=== PATIENT | male | born 1955 | race Caucasian/White ===

== ENCOUNTER → 2019-01-24 11:16 | Outpatient (CLI) | payer OTHER, MEDICAID, SELFPAY | PROVIDERS: PCP Student in an Organized Health Care Education/Training Program; Visit Provider Acupuncturist | DX: Z79.891 Long term (current) use of opiate analgesic (principal) | CPT/HCPCS: 93005; 93010 ==

== ENCOUNTER → 2019-02-08 13:34 | Outpatient (CLI) | payer OTHER, MEDICAID, SELFPAY ==
--- NOTE | 2019-02-08 | DI.MRI.S_ITS ---
PROCEDURE: MR LUMBAR SPINE WO CON INDICATIONS: LUMBAGO WITH SCIATICA TECHNIQUE: Noncontrast sagittal T1 spin echo and T2 fast echo, sagittal STIR, axial T1 and T2 fast spin echo through the lumbar spine. In cases with scoliosis, additional coronal T2 fast spin echo may be performed. COMPARISON: [facility], MR, MR ABDOMEN WITH/WITHOUT CONTRAST, 12/15/2017, 10:49. [facility], MR, L-SPINE WITHOUT CONTRAST, 05/07/2008, 17:36. FINDINGS: Image quality: Excellent. Alignment and Curvature: No plain films are available for comparison, for numbering purposes. Thus, for the purposes of this examination, 5 lumbar type vertebral bodies will be presumed, as denoted on the montage panel. This should be confirmed and correlated with plain films, prior to any lumbar spinal intervention. There is mild, grade 1 retrolisthesis of L2 on L3, L3 on L4, and L5 on S1. Bone Marrow: Marrow is of normal overall signal. No acute vertebral body compression fractures. Small Schmorl's nodes invaginate the inferior L3 and inferior L4 end plates. There is moderate reactive signal within the end plates adjacent to the L3-L4, L4-L5, and L5-S1 intervertebral discs, increased compared to the prior examination. There is new mild reactive signal within the endplates adjacent to the L2-L3 intervertebral disc. Spinal Cord: Conus medullaris terminates at the L1-L2 disc space level. Visualized cord demonstrates normal signal and size. Paraspinous Soft Tissues: No paravertebral masses. Biliary ductal dilatation is present, as before. L1-L2: Normal appearance. L2-L3: Severe disc height loss and desiccation. Mild diffuse disc bulge/osteophyte. Mild facet and ligament flavum hypertrophy. Mild canal stenosis. Moderate subarticular foraminal stenosis, increased from the prior examination. L3-L4: Severe disc height loss and desiccation. Mild diffuse disc bulge. Mild facet and ligamentum flavum hypertrophy. Mild canal stenosis. Increased, moderate subarticular foraminal stenosis. L4-L5: Moderate discoid loss and desiccation. Mild diffuse disc bulge/osteophyte. Mild facet and ligament flavum hypertrophy. Mild canal stenosis. Moderate subarticular foraminal stenosis, increased from the prior examination. L5-S1: Severe disc height loss and desiccation. Mild diffuse disc bulge/osteophyte with superimposed left far lateral protrusion/osteophyte. Mild bilateral facet hypertrophy. Mild canal stenosis. Mild right and severe left foraminal stenosis, increased from the prior examination. Flattening deformity of the left L5 nerve root within the neural foramen. IMPRESSION: 1. 5 lumbar type vertebral bodies were presumed for the current report. Plain films of the lumbar spine are recommended for confirmation, prior to any lumbar spinal intervention. 2. Multilevel degenerative disc and facet disease, as well as ligamentum flavum hypertrophy and epidural lipomatosis. 3. Mild multilevel canal stenoses. 4. Multilevel foraminal stenoses, worst at L5-S1 on the left where there is associated L5 nerve root flattening. Recommend correlation with clinical symptoms to ascertain relevance of this finding. 5. Biliary ductal dilatation, which could be further assessed with MRCP, if clinically indicated. Dictated by: Bentley Husain M.D. on 02/08/2019 at 14:41 Approved by: Bentley Husain M.D. on 02/08/2019 at 14:48
== END ==
PROVIDERS: PCP Student in an Organized Health Care Education/Training Program; Visit Provider Acupuncturist
DX: M51.16 Intervertebral disc disorders with radiculopathy, lumbar region (principal); M51.17 Intervertebral disc disorders with radiculopathy, lumbosacral region; M48.061 Spinal stenosis, lumbar region without neurogenic claudication; M48.07 Spinal stenosis, lumbosacral region; E88.2 Lipomatosis, not elsewhere classified; K83.8 Other specified diseases of biliary tract
CPT/HCPCS: 72148

== ENCOUNTER 2019-07-09 21:17 | Emergency (ER) | payer OTHER, MEDICAID, SELFPAY ==
[2019-07-09 21:20] VITALS: BP 171/81; PULSE 91; RESP 18; TEMP 36.6; O2SAT 95
[2019-07-09 22:00] VITALS: BP 153/112; PULSE 65; RESP 18; O2SAT 100
[2019-07-09] MEDS: HYDROMORPHONE 1 MG INJ IV (22:08)
[2019-07-09] MEDS: ONDANSETRON 4 MG/2 ML INJ IV (22:10)
--- NOTE | 2019-07-09 22:20 | ED_ITS ---
HPI - Abdominal Pain General Chief Complaint: Abdominal Pain Stated Complaint: BLOATING DIARRHEA Time Seen by Provider: 07/09/19 21:28 Source: patient and family Mode of arrival: ambulatory Limitations: no limitations History of Present Illness HPI narrative: 64-year-old male smoker and former heavy drinker with hepatitis C and hepatocellular carcinoma presents with bloating and diarrhea for the past few days. He also has generalized abdominal pain and some swelling and reportedly has been out of his methadone. Patient denies any fever chills. He is not dizzy nor weak or lightheaded. He denies chest pain or shortness of breath. Family and friends at the bedside deny any mental status change. Patient denies recent antibiotic use, long-distance travel, bad food or exposure to ill persons MD complaint: abdominal pain Onset (ago): day(s) Pain Consistency: constant Location: diffuse Severity: moderate Quality: cramping Radiation: none Migration to: no migration Relieving factors: nothing Exacerbating factors: nothing Associated symptoms: nausea and diarrhea Related Data Home Medications Medication Instructions Recorded Confirmed methadone 10 mg PO QID 07/09/19 07/09/19 Allergies Allergy/AdvReac Type Severity Reaction Status Date / Time acetaminophen [From Tylenol] AdvReac Unknown Verified 07/09/19 21:28 Review of Systems Constitutional Denies chills, Denies fever(s), Denies lethargy and Denies weakness Eyes Denies change in vision, Denies eye discharge, Denies irritation and Denies loss of vision ENT Ears, Nose, Mouth, and Throat: Denies change in voice, Denies neck pain and Denies sore throat Cardiovascular Denies chest pain, Denies irregular heart rhythm, Denies lightheadedness, Denies palpitations, Denies dyspnea, Denies dyspnea on exertion and Denies orthopnea Respiratory Denies cough, Denies dyspnea, Denies dyspnea on exertion and Denies wheezing Gastrointestinal Gastrointestinal: Reports abdominal pain, Reports change in bowel habits, Reports diarrhea, Reports nausea and Denies vomiting Genitourinary Denies hematuria, Denies flank pain, Denies urinary incontinence and Denies urinary urgency Musculoskeletal Denies neck pain Integumentary/Breasts Denies pruritus, Denies erythema, Denies rash and Denies wounds Neurologic Denies confusion, Denies loss of vision and Denies weakness Psychiatric Denies anxiety, Denies confusion, Denies depression, Denies homicidal ideation and Denies suicidal ideation Endocrine Denies palpitations Hematologic/Lymphatic Denies easy bruising Allergic/Immunologic Denies wheezing PFSH Medical History Uncomplicated opioid dependence (Chronic) Hepatocellular carcinoma (Resolved Unknown) GERD (gastroesophageal reflux disease) (Chronic Unknown) Hypertension (Chronic Unknown) DDD (degenerative disc disease), lumbosacral (Chronic Unknown) Hepatitis C (Chronic Unknown) Cirrhosis (Chronic Unknown) Bipolar disorder (Chronic Unknown) Chronic pain syndrome (Chronic Unknown) Hx of head injury (Resolved 1984) Surgical History History of surgery of liver (Resolved ~2011) Hx of skin graft (Resolved 1995) Family History Mother Age: 85 Breast cancer genetic susceptibility Social History Smoking Status: Current every day smoker Family History Mother Age: 85 Breast cancer genetic susceptibility Social History Smoking Status: Current every day smoker Exam Narrative Exam Narrative: GENERAL: [64] year old patient appears older than stated age. Temporal wasting, obviously chronically ill and a bit disheveled though alert and oriented x3 with GCS 15 HEAD: Atraumatic. Normocephalic. EYES: Pupils equal round and reactive. Extraocular motions intact. No scleral icterus. No injection or drainage. ENT: Nose without bleeding, purulent drainage. Throat without erythema, tonsillar hypertrophy or exudate. Airway patent. NECK: Trachea midline. Non tender CARDIOVASCULAR: Regular rate and rhythm without murmurs, gallops, or rubs. RESPIRATORY: Clear to auscultation. Breath sounds equal bilaterally. No wheezes, rales, or rhonchi. GASTROINTESTINAL: Abdomen soft, generalized tenderness with ascites and fluid wave. No redness or warmth to suggest spontaneous bacterial peritonitis, nondistended. EXTREMITIES: No edema or joint tenderness. BACK: Nontender without deformity or crepitance. No flank tenderness. NEURO: AOx3. SKIN: No rash or erythema of visible areas Initial Vital Signs Initial Vital Signs: Vital Signs Temperature 97.9 F 07/09/19 21:20 Pulse Rate 91 H 07/09/19 21:20 Respiratory Rate 18 07/09/19 21:20 Blood Pressure 171/81 H 07/09/19 21:20 Pulse Oximetry 95 07/09/19 21:20 Course Orders Ordered: ED Orders 07/09/19 22:05 Complete Blood Count AUTO DIFF Stat Comprehensive Metabolic Panel Stat Lactate (Lactic Acid) Stat Lipase Stat Magnesium Stat Partial Thromboplastin Time Stat Procalcitonin Stat Prothrombin Time INR Stat Troponin I Stat 07/09/19 22:30 Ammonia (NH3) Stat Blood Culture Stat 07/09/19 23:09 CT chest abd pel w con Stat Discontinued Medications Hydromorphone HCl (Dilaudid) 1 mg IV NOW ONE Stop: 07/09/19 21:52 Last Admin: 07/09/19 22:08 Dose: 1 mg Hydromorphone HCl (Dilaudid) 1 mg IV NOW ONE Stop: 07/10/19 01:45 Last Admin: 07/10/19 01:53 Dose: 1 mg Ondansetron HCl (Zofran) 4 mg IV NOW ONE Stop: 07/09/19 21:52 Last Admin: 07/09/19 22:10 Dose: 4 mg Ondansetron HCl (Zofran Odt Prepack) 1 bottle MISC SEEINSTR ONE Stop: 07/10/19 01:46 Last Admin: 07/10/19 01:53 Dose: 1 bottle Oxycodone/Acetaminophen (Endocet 5/325 Prepack) 1 bottle MISC SEEINSTR ONE Stop: 07/10/19 01:45 Last Admin: 07/10/19 01:53 Dose: 1 bottle Vital Signs - 8 hr 07/09/19 23:00 07/10/19 00:19 07/10/19 01:27 Temperature Pulse Rate 57 L 58 L 60 Respiratory Rate 15 16 17 Blood Pressure Blood Pressure [Left Arm] 151/67 H 150/84 H 137/75 Pulse Oximetry 100 100 100 07/10/19 02:04 07/10/19 02:42 Temperature 98.8 F Pulse Rate 59 L 170 H Respiratory Rate 16 Blood Pressure 144/93 H Blood Pressure [Left Arm] Pulse Oximetry 99 100 MDM - Abdominal Pain Lab Data Result diagrams: 07/09/19 22:05 07/09/19 22:05 Lab Results 07/09/19 07/09/19 07/09/19 Range/Units 22:05 22:05 22:05 WBC 5.8 (4.5-11.0) X10^3/uL RBC 4.32 L (4.5-5.9) X10^6/uL Hgb 13.8 (13.5-17.5) g/dL Hct 39.9 L (41-53) % MCV 92.3 (80-100) fL MCH 32.0 (26-34) PG MCHC 34.7 (30-36) % RDW 13.7 (11.6-14.8) % Plt Count 89 L (150-400) X10^3/uL Neut % (Auto) 81.3 H (50-75) % Lymph % (Auto) 5.5 L (25-40) % [place] % (Auto) 9.7 (3-14) % Eos % (Auto) 2.6 (2-4) % Baso % (Auto) 0.9 (0-2) % Neut # (Auto) 4700 (1496-3309) /uL Lymph # (Auto) 300 L (3955-4855) /uL [place] # (Auto) 600 (0-900) /uL Eos # (Auto) 200 (0-450) /uL Baso # (Auto) 100 (0-100) /uL RBC Morphology Normal morphology PT 13.4 H (10.1-12.7) SECONDS INR 1.2 (0.9-1.3) APTT 34 (26.4-36.2) SECONDS Sodium 135 L (137-145) mmol/L Potassium 3.8 (3.4-5.1) mmol/L Chloride 101 (98-107) mmol/L Carbon Dioxide 29 (22-32) mmol/L BUN 7 L (9-20) mg/dL Creatinine 0.60 L (0.66-1.25) mg/dL Estimated GFR > 60.0 (>60) mL/min BUN/Creatinine Ratio 11.7 (6-22) Glucose 123 H (80-110) mg/dL Lactate (0.7-2.1) mmol/L Calcium 8.5 (8.4-10.2) mg/dL Magnesium 1.9 (1.6-2.3) mg/dL Total Bilirubin 1.0 (0.2-1.3) mg/dL AST 45 (17-59) IU/L ALT 24 (21-72) IU/L Alkaline Phosphatase 114 (38-126) U/L Ammonia (9-30) umol/L Troponin I < 0.012 (0.01-0.034) ng/mL Total Protein 7.0 (6.3-8.2) g/dL Albumin 3.4 L (3.5-5.0) g/dL Globulin 3.6 (1.7-4.1) g/dL Albumin/Globulin Ratio 0.9 L (1.0-2.8) Lipase 69 (23-300) U/L Procalcitonin (<0.5) ng/mL 07/09/19 07/09/19 07/09/19 Range/Units 22:05 22:05 22:30 WBC (4.5-11.0) X10^3/uL RBC (4.5-5.9) X10^6/uL Hgb (13.5-17.5) g/dL Hct (41-53) % MCV (80-100) fL MCH (26-34) PG MCHC (30-36) % RDW (11.6-14.8) % Plt Count (150-400) X10^3/uL Neut % (Auto) (50-75) % Lymph % (Auto) (25-40) % [place] % (Auto) (3-14) % Eos % (Auto) (2-4) % Baso % (Auto) (0-2) % Neut # (Auto) (4227-2925) /uL Lymph # (Auto) (1903-5324) /uL [place] # (Auto) (0-900) /uL Eos # (Auto) (0-450) /uL Baso # (Auto) (0-100) /uL RBC Morphology PT (10.1-12.7) SECONDS INR (0.9-1.3) APTT (26.4-36.2) SECONDS Sodium (137-145) mmol/L Potassium (3.4-5.1) mmol/L Chloride (98-107) mmol/L Carbon Dioxide (22-32) mmol/L BUN (9-20) mg/dL Creatinine (0.66-1.25) mg/dL Estimated GFR (>60) mL/min BUN/Creatinine Ratio (6-22) Glucose (80-110) mg/dL Lactate 1.5 (0.7-2.1) mmol/L Calcium (8.4-10.2) mg/dL Magnesium (1.6-2.3) mg/dL Total Bilirubin (0.2-1.3) mg/dL AST (17-59) IU/L ALT (21-72) IU/L Alkaline Phosphatase (38-126) U/L Ammonia < 9.0 L (9-30) umol/L Troponin I (0.01-0.034) ng/mL Total Protein (6.3-8.2) g/dL Albumin (3.5-5.0) g/dL Globulin (1.7-4.1) g/dL Albumin/Globulin Ratio (1.0-2.8) Lipase (23-300) U/L Procalcitonin < 0.05 (<0.5) ng/mL Point of care testing: Urine Dip Bedside Urine Glucose Negative Bedside Urine Bilirubin - Negative Bedside Urine Ketone - Negative Urine Specific [place] 1.015 Bedside Urine Occult Blood - Negative Bedside Urine pH 5.5 Bedside Urine Protein - Negative Bedside Urine Urobilinogen - Negative Bedside Urine Nitrite - Negative Bedside Urine Leukocytes - Negative Esterase Imaging Data CT scan - chest: Radiologist's impression: Changes of cirrhosis and portal hypertension. Several indeterminate hepatic lesions. Indeterminate dilatation of common bile duct. Large amount of ascites. Discharge Plan Departure Patient Disposition: Home Clinical Impression: Degeneration of intervertebral disc at L5-S1 level Ascites Qualifiers: Ascites type: due to alcoholic cirrhosis Qualified Code(s): K70.31 - Alcoholic cirrhosis of liver with ascites Diarrhea Qualifiers: Diarrhea type: unspecified type Qualified Code(s): R19.7 - Diarrhea, unspe cified Discharge Date/Time: 07/10/19 02:47 Interventions: ED Discharge Assessment Last Done: 07/10/19 02:04 Instructions: DI for Abdominal Pain-Adult Activity Restrictions/Additional Instructions: *You have been diagnosed with [ascites you to alcoholic cirrhosis, diarrhea] *What to do: *Take medications as directed *Follow up with your primary care provider in 2-3 days, call for an appointment. Let them know you were seen in the Emergency Department and that we ask that you be seen in follow up. They will likely want to refer you to for a paracentesis to drain the fluid off of your abdomen *Return to ER if you should have any new, worsening or concerning symptoms Prescriptions: No Action methadone 10 mg tablet 10 mg PO QID RF: 0 Referrals: Ricky Lorenzo MD [Primary Care Provider] -
[2019-07-09 22:38] LABS: INR 1.2 (0.9-1.3); Prothrombin Time 13.4 SECONDS (10.1-12.7)
[2019-07-09 22:41] LABS: PTT Partial Thromboplastin Tim 34 SECONDS (26.4-36.2)
[2019-07-09 22:42] LABS: Lactate (Lactic Acid) 1.5 mmol/L (0.7-2.1)
[2019-07-09 22:45] LABS: Alanine Aminotransferase 24 IU/L (21-72); Albumin 3.4 g/dL (3.5-5.0); Albumin Globulin Ratio 0.9 (1.0-2.8); Alkaline Phosphatase 114 U/L (38-126); Aspartate Aminotransferase 45 IU/L (17-59); BUN Creatinine Ratio 11.7 (6-22); Blood Urea Nitrogen 7 mg/dL (9-20); Calcium 8.5 mg/dL (8.4-10.2); Carbon Dioxide 29 mmol/L (22-32); Chloride 101 mmol/L (98-107); Estimated Glomerular Filt Rate > 60.0 mL/min (>60); Globulin 3.6 g/dL (1.7-4.1); Glucose 123 mg/dL (80-110); HEMOLYSIS < 15 (0-50); Lipase 69 U/L (23-300); Magnesium 1.9 mg/dL (1.6-2.3); Potassium 3.8 mmol/L (3.4-5.1); Sodium 135 mmol/L (137-145)
[2019-07-09 22:48] LABS: Basophils Absolute Auto 100 /uL (0-100); Basophils Percent Auto 0.9 % (0-2); Eosinophils Absolute Auto 200 /uL (0-450); Eosinophils Percent Auto 2.6 % (2-4); Hematocrit 39.9 % (41-53); Hemoglobin 13.8 g/dL (13.5-17.5); Lymphocytes Absolute Auto 300 /uL (1100-4500); Lymphocytes Percent Auto 5.5 % (25-40); Mean Corpuscular HGB Conc 34.7 % (30-36); Mean Corpuscular Volume 92.3 fL (80-100); Monocytes Absolute Auto 600 /uL (0-900); Monocytes Percent Auto 9.7 % (3-14); Neutrophils Absolute Auto 4700 /uL (1500-7000); Neutrophils Percent Auto 81.3 % (50-75); Red Blood Cell Count 4.32 X10^6/uL (4.5-5.9); Red Cell Distribution Width 13.7 % (11.6-14.8); White Blood Cell Count 5.8 X10^3/uL (4.5-11.0)
[2019-07-09 22:50] LABS: Ammonia (NH3) < 9.0 umol/L (9-30)
[2019-07-09 22:55] LABS: Platelet Count 89 X10^3/uL (150-400)
[2019-07-09 22:56] LABS: Add Manual Diff / Slide Review SLIDE REVIEW; Troponin I < 0.012 ng/mL (0.01-0.034)
[2019-07-09 22:57] LABS: RBC Morphology Normal Morphology
[2019-07-09 22:59] LABS: Procalcitonin < 0.05 ng/mL (<0.5)
[2019-07-09 23:00] VITALS: BP 151/67; PULSE 57; RESP 15; O2SAT 100
--- NOTE | 2019-07-09 23:09 | DI.CT.S_ITS ---
PROCEDURE: CT CHEST ABD PEL W CON INDICATIONS: severe abdominal pain, SOB, N/V, liver CA TECHNIQUE: After the administration of intravenous contrast, 5 mm thick sections acquired from the lung apices to the symphysis. 2.5 mm thick coronal and sagittal reformats were acquired. Additional 7 mm thick coronal maximum intensity projection (MIP) reformats acquired through the lungs. Optional 10-minute delayed imaging may be performed from the kidneys to the bladder. For radiation dose reduction, the following was used: automated exposure control, adjustment of mA and/or kV according to patient size. COMPARISON: [facility], MR, MR ABDOMEN WITH/WITHOUT CONTRAST, 12/15/2017, 10:49. FINDINGS: Image quality: Excellent. CHEST: Lungs: No pulmonary contusions or lacerations. Few scattered blebs. Punctate calcified granuloma in the left upper lobe on image 88. No acute consolidation. No pneumothorax or hemothorax. Central and peripheral airways appear patent and normal in caliber. Mediastinum: No mediastinal hematomas. Heart size is normal. No pericardial effusion. Thoracic aorta and pulmonary arteries demonstrate normal size and enhancement. No mediastinal or hilar adenopathy. Esophagus is normal in caliber. No hiatal hernia. Chest wall: No rib fractures. No subcutaneous emphysema. No axillary or supraclavicular adenopathy. Thyroid gland unremarkable. ABDOMEN: Solid organs: Cirrhosis of the liver is again noted with nodular contour. There are numerous hyperdense and hypoattenuating hepatic lesions in keeping with given clinical history of HCC. Peripheral calcifications are noted with capsular retraction involving some of the hypoattenuating lesions in keeping with sequela of prior treatment. Gallbladder contains no definite radiopaque calculi. There is moderate extra hepatic bile duct dilatation. Diffuse ascites including within the pericholecystic region. Pancreatic atrophy. Splenomegaly. No adrenal hematomas. Kidneys unremarkable. Peritoneum and bowel: Diffuse moderate to large ascites. No free air. No evidence of bowel obstruction. Long segment sigmoid and descending colonic wall thickening. Appendix is not clearly identified however no suspicious pericecal inflammatory changes are identified Nodes and vessels: No retroperitoneal or mesenteric adenopathy. Aorta and inferior vena cava are normal in size and enhancement. Miscellaneous: No ventral hernias. PELVIS: Genitourinary: 1 cm cystic appearing lesion involving the anterior wall of the bladder on image 117 series 2 is indeterminate. Miscellaneous: No inguinal hernias or adenopathy. Bones: Pelvic ring and hip joints appear intact. No vertebral compression fractures. Diffuse spondylosis and facet disease. Scattered Schmorl's nodes. IMPRESSION: Cirrhosis of the liver, and several indeterminate hepatic lesions. Continued surveillance with liver protocol MRI could be performed to assess for progressive metastatic disease Moderate dilatation of the common bile duct. No radiopaque calculus seen. Diffuse large ascites. Long segment sigmoid and descending colonic wall thickening, potentially related to hypoproteinemia in the setting of chronic liver disease however acute infectious or inflammatory colitis is in the differential. Therefore please correlate clinically. Cystic-appearing bladder lesion, indeterminate. Additional chronic and incidental findings as above. Dictated by: Wallace Quinn M.D. on 07/10/2019 at 8:07 Approved by: Wallace Quinn M.D. on 07/10/2019 at 8:23
[2019-07-10 00:19] VITALS: BP 150/84; PULSE 58; RESP 16; O2SAT 100
[2019-07-10 01:27] VITALS: BP 137/75; PULSE 60; RESP 17; O2SAT 100
[2019-07-10] MEDS: ONDANSETRON 4 MG ODT PREPACK 1 BOTTLE MISC (01:53)
[2019-07-10] MEDS: HYDROMORPHONE 1 MG INJ IV (01:53)
[2019-07-10] MEDS: OXYCODONE/APAP 5/325 PREPACK 1 BOTTLE MISC (01:53)
[2019-07-10 02:04] VITALS: BP 144/93; PULSE 59; RESP 16; O2SAT 99
[2019-07-10 02:42] VITALS: PULSE 170; TEMP 37.1; O2SAT 100
== END 2019-07-10 02:47 | disposition home or self-care (01) ==
PROVIDERS: Emergency Provider Emergency Medicine; PCP Student in an Organized Health Care Education/Training Program
DX: M51.36 Other intervertebral disc degeneration, lumbar region (principal); M51.37 Other intervertebral disc degeneration, lumbosacral region; K70.31 Alcoholic cirrhosis of liver with ascites; R19.7 Diarrhea, unspecified
CPT/HCPCS: 36415; 36591; 71260; 74177; 80053; 81003; 82140; 83605; 83690; 83735; 84145; 84484; 85025; 85610; 85730; 87040; 96374; 96375; 99283; 99285; J1170; J2405

== ENCOUNTER → 2019-07-18 13:06 | Outpatient (CLI) | payer OTHER, MEDICAID, SELFPAY ==
--- NOTE | 2019-07-18 13:07 | DI.US.S_ITS ---
PROCEDURE: US ABDOMEN LIMITED INDICATIONS: ASCITES TECHNIQUE: Real-time focused scanning was performed of the abdomen, with image documentation. COMPARISON: [facility], US, ABDOMEN COMPLETE, 08/25/2012, 10:39. [facility], CT, CT CHEST ABD PEL W CON, 07/09/2019, 23:24. [facility], MR, MR ABD W&WO CON, 12/01/2016, 12:56. FINDINGS: Targeted ultrasound of the abdomen was performed prior to paracentesis to evaluate for intra-abdominal ascites. There is a minimal to mild volume of ascitic fluid throughout the abdomen with no adequate ascitic collection amenable to paracentesis. Prominent loops of bowel are identified in all areas of the abdomen. Patient reports that his previous reported abdominal distention has decreased over time since his most recent visit to the emergency department. IMPRESSION: Minimal to mild volume of ascitic fluid throughout the abdomen with no adequate ascitic fluid collection amenable to paracentesis at this time. These findings and recommendations were discussed with the patient at the time of the exam in person by Dr. Montelongo. The patient was advised to monitor his abdomen and to notify his referring provider should prominent ascitic fluid reaccumulate/abdominal distention worsen; a paracentesis can be performed at that time. Dictated by: Angel Montelongo M.D. on 07/18/2019 at 16:06 Approved by: Angel Montelongo M.D. on 07/18/2019 at 16:10
== END ==
PROVIDERS: PCP Student in an Organized Health Care Education/Training Program; Visit Provider Student in an Organized Health Care Education/Training Program
DX: R18.8 Other ascites (principal); C22.0 Liver cell carcinoma; B19.20 Unspecified viral hepatitis C without hepatic coma
CPT/HCPCS: 76705

== ENCOUNTER 2020-05-10 09:29 | Emergency (ER) | payer OTHER, MEDICAID, SELFPAY ==
[2020-05-10] VITALS (9 sets, daily range): BP systolic 111–165; BP diastolic 69–79; PULSE 64–102; RESP 10–20; TEMP 36.8–37.1; O2SAT 97–100; BMI 22.4
--- NOTE | 2020-05-10 09:33 | ED_ITS ---
HPI - GI Bleed General Chief complaint: GI Bleed Stated complaint: vomiting blood History of Present Illness HPI Narrative: CC: Acute hematemesis HPI: The patient is a 65-year-old male who was transferred to the emergency department with sinus tachycardia and acute vomiting of blood this morning. 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 The patient also has a history of hepatocellular cancer. The patient arm has seen a Dr. Tobin bullet casting operator in [facility]. The patient developed the vomiting of blood this morning. He has been extremely anxious and scared. He has had melanotic stools that started today. He has been lightheaded but has not passed out. He states that he is scared to . He is having diffuse abdominal pain and discomfort. The pain is dull and achy and is 7 to 8/10 in intensity. The patient denies a history of asthma COPD myocardial infarction stroke hypertension diabetes mellitus. He does smoke cigarettes. He formal consumer of alcohol does not use marijuana or drugs. The patient has had upper endoscopy. He does not remember ever being told that he had esophageal varices or gastric varices. He denies that he has ever vomited blood like this. Related Data Home Medications Medication Instructions Recorded Confirmed methadone 10 mg PO QID 07/09/19 07/25/19 Previous Rx's Medication Instructions Recorded spironolactone 50 mg tablet 50 mg PO DAILY #90 tab 01/24/20 Allergies Allergy/AdvReac Type Severity Reaction Status Date / Time acetaminophen [From Tylenol] AdvReac Unknown Verified 05/10/20 09:41 Review of Systems Review of Systems Narrative: REVIEW OF SYSTEMS: CONSTITUTIONAL: The patient denies any fever chills or sweats. NEUROLOGICAL: He has had no headache numbness tingling paresthesias anesthesia is paresis or paralysis. EENT: He denies any sore throat or trouble swallowing. He has had no nasal drainage. CARDIO-PULMONARY: He has been short of breath but denies any cough chest pain. He has had palpitations with racing of his heart dizziness and lightheadedness. HEMOTOLOGICAL: He has been vomiting blood started today GASTROINTESTINAL: He complains of diffuse abdominal pain with nausea vomiting hematemesis. He has had melena but no diarrhea. GENITAL URINARY: He denies any urinary symptoms. MUSCULOSKELETAL/ RHEUMATOLOGICAL: He denies any back pain more than usual. He states that he has chronic back pain DERMATOLOGICAL: He has had no skin rash hives itching or purpura MENTAL HEALTH: The patient is scared to and is acutely anxious. Patient History Medical History Bipolar disorder (Chronic Unknown) Chronic pain syndrome (Chronic Unknown) Cirrhosis (Chronic Unknown) DDD (degenerative disc disease), lumbosacral (Chronic Unknown) GERD (gastroesophageal reflux disease) (Chronic Unknown) Hepatitis C (Chronic Unknown) Hepatocellular carcinoma (Chronic Unknown) Hx of head injury (Resolved 1984) Hypertension (Chronic Unknown) Uncomplicated opioid dependence (Chronic) Surgical History History of surgery of liver (Resolved ~2011) Hx of skin graft (Resolved 1995) Family History Mother Age: 86 Breast cancer genetic susceptibility Social History Smoking Status: Current every day smoker Smoking Status: Current every day smoker alcohol intake frequency: 0-2 drinks per day Substance Use Type: does not use Exam Narrative Exam Narrative: PHYSICAL EXAM: CONSTITUTIONAL: Awake, Alert, Oriented, Coherent, Cooperative extremely anxious slow to respond and has a blunted affect. He appears pale. HEAD: AT/NC EENT: PERRL, FROM of eyes, no discharge, no nystagmus NOSE:No epistaxis or nasal drainage MOUTH:Oral mucosa is moist and pink, posterior pharynx is without erythema or exudate. He has evidence of dry blood on his lips and around the cool corners of his mouth. NECK: Supple, no obvious JVD, Trachea is midline without stridor, no palpable LN. SPINE: Palpationof the cervical, Thoracic, Lumbar or Sacral spine reveals no gross deformity or tenderness. No CVA tenderness. THORAX: No deformity, retractions, chest wall tenderness. LUNGS: Decreased breath sounds bilaterally but clear and symmetrical with a few coarse expiratory rhonchi that clear with coughing and continue deep breathing HEART: Normal heart tones, regular rhythm and rate without murmur. ABDOMEN: Diffuse tenderness on palpation of the left upper quadrant left lower quadrant. LYMPHATIC: Questionable palpable spleen tip EXTREMITIES: No edema, deformity, tenderness or cyanosis. SKIN: No rash, bruising, petechiae or purpura. NEURO: Awake, alert, oriented, conversive, cranial nerves II-XII are symmetrical , moves all 4 extremities and is ambulatory. MENTAL HEALTH: The patient is acutely anxious but cooperative. Initial Vital Signs Initial Vital Signs: Vital Signs Temperature 98.7 F 05/10/20 09:28 Pulse Rate 102 H 05/10/20 09:28 Respiratory Rate 15 05/10/20 09:28 Blood Pressure 156/76 H 05/10/20 09:28 Pulse Oximetry 100 05/10/20 09:28 Course Course Course Narrative: 0905: The patient is not here yet. The patient was advanced triage. I was given the history that he is an acute GI bleed, tachycardic with a history of cirrhosis of the liver being transported from [facility]. 1200 the patient's hemoglobin is 11.8 with hematocrit of 34.1. White blood count is 6.1. Lactic acid is 3.1. The patient will be or administered 80 mg of Protonix IV push followed by a Protonix drip and 50 mg ofoctreotide. A call has been placed into Dr. Tobin the patient's bullet casting operator at [facility]. For recommendations on admission and possible transfer for EGD. The patient is unaware that he may have gastric or esophageal varices causing his acute hematemesis. 1227: I discussed the patient with Dr. Ronni Marcos who was on-call for Dr. josé manuel Tinoco and agrees with the patient being transferred over to their institution. The patient has a history of esophageal varices in the past. The patient will be administered a dose of Rocephin IV as well as placed on an octreotide drip. CT of the patient's abdomen reveals: Diffuse colitis. Given the nodular thickening please consider Clostridium difficile colitis, although other causes of infectious or inflammatory colitis could result in this appearance. There is a small to moderate amount of ascites. The liver is abnormal with I a cirrhotic appearance with interval worsening of numerous hyper enhancing nodules. Differential diagnosis includes read generating nodules and metastatic disease. There is a dilated common bile duct. A potential distal common duct stone can be seen. As clinically appropriate an MRCP could be considered for further evaluation assuming there is no contraindication to MRI. There is splenomegaly. There is small left-sided pleural effusion. Incidental note is made of an a ccessory splenule lower lumbar spine degenerative changes apparent bladder wall cyst. 1325: I discussed the patient with the electronic funds transfer coordinator and the hospitalist who has accepted the patient being transferred to [facility]. They will call back with a room number. Orders Ordered: Discontinued Medications Sodium Chloride (Normal Saline 0.9%) 1,000 mls @ 1,000 mls/hr IV BOLUS ONE Stop: 05/10/20 13:05 Last Infusion: 05/10/20 13:50 Dose: 0 mls/hr Documented by: Admin: 05/10/20 12:35 Dose: 1,000 mls/hr Documented by: MALCOM Pantoprazole Sodium 80 mg/ (Sodium Chloride) 100 mls @ 10 mls/hr IV CONT NORRIS Last Infusion: 05/10/20 14:56 Dose: 0 mg/hr, 0 mls/hr Documented by: Admin: 05/10/20 12:37 Dose: 8 mg/hr, 10 mls/hr Documented by: MALCOM Ceftriaxone Sodium/Dextrose (Rocephin) 2 gm in 50 mls @ 100 mls/hr IV NOW ONE Stop: 05/10/20 13:00 Last Infusion: 05/10/20 14:57 Dose: 0 mls/hr Documented by: Admin: 05/10/20 14:36 Dose: 100 mls/hr Documented by: MALCOM Metronidazole (Flagyl) 500 mg in 100 mls @ 100 mls/hr IV NOW ONE Stop: 05/10/20 13:29 Last Infusion: 05/10/20 14:36 Dose: 0 mls/hr Documented by: Admin: 05/10/20 13:24 Dose: 100 mls/hr Documented by: MALCOM Octreotide Acetate 500 mcg/ (Sodium Chloride) 101 mls @ 10.1 mls/hr IV CONT NORRIS; Protocol Last Infusion: 05/10/20 14:57 Dose: 0 mcg/hr, 0 mls/hr Documented by: Admin: 05/10/20 13:24 Dose: 50 mcg/hr, 10.1 mls/hr Documented by: MALCOM Lorazepam (Ativan) 1 mg IV NOW ONE Stop: 05/10/20 10:01 Last Admin: 05/10/20 10:12 Dose: 1 mg Documented by: MALCOM Octreotide Acetate (Sandostatin) 50 mcg IV NOW ONE Stop: 05/10/20 12:09 Last Admin: 05/10/20 12:36 Dose: 50 mcg Documented by: MALCOM Ondansetron HCl (Zofran) 4 mg IV NOW ONE Stop: 05/10/20 09:37 Last Admin: 05/10/20 09:58 Dose: 4 mg Documented by: KRISTOFER Pantoprazole Sodium (Protonix) 80 mg IV NOW ONE Stop: 05/10/20 12:08 Last Admin: 05/10/20 12:35 Dose: 80 mg Documented by: MALCOM Vital Signs Vital signs: Vital Signs - 8 hr 05/10/20 09:28 05/10/20 10:34 05/10/20 12:20 Temperature 98.7 F Pulse Rate 102 H 75 71 Respiratory Rate 15 12 Blood Pressure 156/76 H Blood Pressure [Right Arm] 127/73 132/77 Pulse Oximetry 100 97 98 MDM - GI Bleed Medical Records Attestation: I reviewed the patient's medical records. Lab Data Attestation: I reviewed the patient's lab results. Result diagrams: 05/10/20 09:20 05/10/20 09:20 Labs: Lab Results 05/10/20 05/10/20 05/10/20 Range/Units 09:20 09:20 09:20 WBC 6.6 (4.5-11.0) X10^3/uL RBC 3.57 L (4.5-5.9) X10^6/uL Hgb 11.8 L (13.5-17.5) g/dL Hct 34.1 L (41-53) % MCV 95.7 (80-100) fL MCH 33.1 (26-34) PG MCHC 34.5 (30-36) % RDW 13.9 (11.6-14.8) % Plt Count 117 L (150-400) X10^3/uL Neut % (Auto) 81.3 H (50-75) % Lymph % (Auto) 6.4 L (25-40) % [place] % (Auto) 10.1 (3-14) % Eos % (Auto) 1.3 L (2-4) % Baso % (Auto) 0.9 (0-2) % Neut # (Auto) 5400 (1451-0692) /uL Lymph # (Auto) 400 L (2821-9962) /uL [place] # (Auto) 700 (0-900) /uL Eos # (Auto) 100 (0-450) /uL Baso # (Auto) 100 (0-100) /uL PT 16.5 H (10.1-12.7) SECONDS INR 1.4 H (0.9-1.3) APTT 31 D (26.4-36.2) SECONDS Sodium 132 L (137-145) mmol/L Potassium 4.2 (3.4-5.1) mmol/L Chloride 99 (98-107) mmol/L Carbon Dioxide 27 (22-32) mmol/L BUN 12 (9-20) mg/dL Creatinine 0.61 L (0.66-1.25) mg/dL Estimated GFR > 60.0 (>60) mL/min BUN/Creatinine Ratio 19.7 (6-22) Glucose 117 H (80-110) mg/dL Lactate (0.7-2.1) mmol/L Calcium 8.0 L (8.4-10.2) mg/dL Total Bilirubin 1.8 H (0.2-1.3) mg/dL AST 78 H (17-59) IU/L ALT 27 (<50) IU/L Alkaline Phosphatase 131 H (38-126) U/L Lactate Dehydrogenase 583 (313-618) U/L Total Creatine Kinase 160 (55-170) U/L CK-MB (CK-2) 1.47 (<2.37) ng/mL CK-MB (CK-2) Rel Index 0.9 L (1.5-5.0) % Troponin I < 0.012 (0.01-0.034) ng/mL Total Protein 6.7 (6.3-8.2) g/dL Albumin 3.1 L (3.5-5.0) g/dL Globulin 3.6 (1.7-4.1) g/dL Albumin/Globulin Ratio 0.9 L (1.0-2.8) Lipase 64 (23-300) U/L Ethyl Alcohol < 10 ( - 10) mg/dL Blood Type Antibody Screen 05/10/20 05/10/20 Range/Units 09:20 09:20 WBC (4.5-11.0) X10^3/uL RBC (4.5-5.9) X10^6/uL Hgb (13.5-17.5) g/dL Hct (41-53) % MCV (80-100) fL MCH (26-34) PG MCHC (30-36) % RDW (11.6-14.8) % Plt Count (150-400) X10^3/uL Neut % (Auto) (50-75) % Lymph % (Auto) (25-40) % [place] % (Auto) (3-14) % Eos % (Auto) (2-4) % Baso % (Auto) (0-2) % Neut # (Auto) (4454-6709) /uL Lymph # (Auto) (3104-7591) /uL [place] # (Auto) (0-900) /uL Eos # (Auto) (0-450) /uL Baso # (Auto) (0-100) /uL PT (10.1-12.7) SECONDS INR (0.9-1.3) APTT (26.4-36.2) SECONDS Sodium (137-145) mmol/L Potassium (3.4-5.1) mmol/L Chloride (98-107) mmol/L Carbon Dioxide (22-32) mmol/L BUN (9-20) mg/dL Creatinine (0.66-1.25) mg/dL Estimated GFR (>60) mL/min BUN/Creatinine Ratio (6-22) Glucose (80-110) mg/dL Lactate 3.1 H (0.7-2.1) mmol/L Calcium (8.4-10.2) mg/dL Total Bilirubin (0.2-1.3) mg/dL AST (17-59) IU/L ALT (<50) IU/L Alkaline Phosphatase (38-126) U/L Lactate Dehydrogenase (313-618) U/L Total Creatine Kinase (55-170) U/L CK-MB (CK-2) (<2.37) ng/mL CK-MB (CK-2) Rel Index (1.5-5.0) % Troponin I (0.01-0.034) ng/mL Total Protein (6.3-8.2) g/dL Albumin (3.5-5.0) g/dL Globulin (1.7-4.1) g/dL Albumin/Globulin Ratio (1.0-2.8) Lipase (23-300) U/L Ethyl Alcohol ( - 10) mg/dL Blood Type A Positive Antibody Screen Negative ECG Data Attestation: I personally reviewed and interpreted this ECG as follows: Interpretation: The patient's EKG obtained on May 10 at 1009:21 reveals a normal sinus rhythm with a ventricular rate of 99. Intervals appear to be normal QRS is 86 milliseconds induration QTC is 441 milliseconds. Carrier is normal. The patient has inverted T-waves in leads III and V1. The patient has noise baseline. It also appears that the patient may possibly have inverted T- waves in V2 V3 V4 V5 and V6. This may be artifactual secondary to the noisy baseline. The patient has nonspecific ST segment changes with arm depressions in leads V3 through V6. There are no acute diagnostic ST segment elevations to suggest injury. At this time I do not have an old EKG to compare. Discharge Plan Departure Patient Disposition: [facility] Clinical Impression: History of hepatitis C, Acidosis, lactic, Colitis Liver cancer Qualifiers: Liver malignancy type: hepatocellular carcinoma Qualified Code(s): C22.0 - Liver cell carcinoma Cirrhosis of liver Qualifiers: Hepatic cirrhosis type: other cirrhosis Qualified Code(s): K74.69 - Other cirrhosis of liver Hematemesis Qualifiers: Nausea presence: with nausea Qualified Code(s): K92.0 - Hematemesis Abdominal pain Qualifiers: Abdominal location: generalized Qualified Code(s): R10.84 - Generalized abdominal pain Esophageal varices Qualifiers: Esophageal varices type: unspecified type Esophageal varices bleeding: with bleeding Qualified Code(s): I85.01 - Esophageal varices with bleeding Discharge Date/Time: 05/10/20 15:03 Prescriptions: No Action spironolactone 50 mg tablet 50 mg PO DAILY Qty: 90 RF: 1 methadone 10 mg tablet 10 mg PO QID RF: 0 Referrals: Ricky Lorenzo MD [Primary Care Provider] -
[2020-05-10 09:46] LABS: Add Manual Diff / Slide Review NO; Basophils Absolute Auto 100 /uL (0-100); Basophils Percent Auto 0.9 % (0-2); Eosinophils Absolute Auto 100 /uL (0-450); Eosinophils Percent Auto 1.3 % (2-4); Hematocrit 34.1 % (41-53); Hemoglobin 11.8 g/dL (13.5-17.5); Lymphocytes Absolute Auto 400 /uL (1100-4500); Lymphocytes Percent Auto 6.4 % (25-40); Mean Corpuscular HGB Conc 34.5 % (30-36); Mean Corpuscular Hemoglobin 33.1 PG (26-34); Mean Corpuscular Volume 95.7 fL (80-100); Monocytes Absolute Auto 700 /uL (0-900); Monocytes Percent Auto 10.1 % (3-14); Neutrophils Absolute Auto 5400 /uL (1500-7000); Neutrophils Percent Auto 81.3 % (50-75); Platelet Count 117 X10^3/uL (150-400); Red Blood Cell Count 3.57 X10^6/uL (4.5-5.9); Red Cell Distribution Width 13.9 % (11.6-14.8); White Blood Cell Count 6.6 X10^3/uL (4.5-11.0)
[2020-05-10 09:55] LABS: INR 1.4 (0.9-1.3); Prothrombin Time 16.5 SECONDS (10.1-12.7)
[2020-05-10 09:57] LABS: PTT Partial Thromboplastin Tim 31 SECONDS (26.4-36.2)
[2020-05-10] MEDS: ONDANSETRON 4 MG/2 ML INJ IV (09:58)
--- NOTE | 2020-05-10 10:00 | DI.CT.S_ITS ---
PROCEDURE: CT ABDOMEN PELVIS W CON INDICATIONS: diffuse abdominal pain, mildly distended, very tender, hematemesis with melena TECHNIQUE: After the administration of intravenous contrast, 5 mm thick sections acquired from the diaphragm to the symphysis. 5 mm coronal and sagittal reformats were acquired. For radiation dose reduction, the following was used: automated exposure control, adjustment of mA and/or kV according to patient size. COMPARISON: [facility], US, US ABDOMEN LIMITED, 07/18/2019, 13:22. [facility], CT, CT CHEST ABD PEL W CON, 07/09/2019, 23:24. FINDINGS: Image quality: Excellent. ABDOMEN: Lung bases: There is a small left-sided pleural effusion with overlying atelectasis. The heart size is within normal limits. Solid organs: The liver demonstrates an irregular appearance, with numerous enhancing nodules. These nodules have clearly progressed in size and number compared to the prior examination. Gallbladder demonstrates no significant CT abnormality. Biliary system is dilated measuring 1.7 cm. There is a potential distal common duct stone, as on series 4 image 27. Pancreas enhances normally. The spleen is enlarged, measuring 14.5 cm craniocaudal. Incidental note is made of an accessory splenule along the inferior aspect of the primary spleen. No adrenal nodules. Kidneys demonstrate normal size and enhancement, without hydronephrosis. Peritoneum and bowel: The colon demonstrates diffuse nodular thickening. There is a small to moderate amount of low-density ascites seen throughout the abdomen. No dilated loops of small bowel are seen. Nodes and vessels: No retroperitoneal or mesenteric adenopathy by size criteria. Aorta and inferior vena cava are normal in size. Atherosclerotic calcification is noted. Miscellaneous: No ventral hernias. PELVIS: Genitourinary: Bladder wall thickness is normal. Along the anterior bladder, there is an apparent cyst again seen. Miscellaneous: No inguinal hernias or adenopathy. Bones: No suspicious bony lesions. No vertebral body compression fractures. Degenerative changes are seen, particularly involving the lower lumbar spine. IMPRESSION: Diffuse colitis. Given the nodular thickening, please consider C. difficile colitis, although other causes of infectious or inflammatory colitis could result in this appearance. Small to moderate ascites. The liver is abnormal with a cirrhotic appearance with interval worsening of numerous hyperenhancing nodules. Differential diagnosis includes regenerating nodules and metastatic disease. There is a dilated common bile duct. A potential distal common duct stone can be seen. As clinically appropriate, an MRCP could be considered for further evaluation (assuming that there is no contraindication to MRI). Splenomegaly. Small left-sided pleural effusion. Incidental note is made of: Accessory splenule Lower lumbar spine degenerative change Apparent bladder wall cyst Dictated by: Missael Cui M.D. on 05/10/2020 at 9:35 Approved by: Missael Cui M.D. on 05/10/2020 at 9:43
[2020-05-10 10:02] LABS: Alanine Aminotransferase 27 IU/L (<50); Albumin 3.1 g/dL (3.5-5.0); Albumin Globulin Ratio 0.9 (1.0-2.8); Alkaline Phosphatase 131 U/L (38-126); Aspartate Aminotransferase 78 IU/L (17-59); BUN Creatinine Ratio 19.7 (6-22); Bilirubin Total 1.8 mg/dL (0.2-1.3); Blood Urea Nitrogen 12 mg/dL (9-20); Carbon Dioxide 27 mmol/L (22-32); Chloride 99 mmol/L (98-107); Creatine Kinase 160 U/L (55-170); Estimated Glomerular Filt Rate > 60.0 mL/min (>60); Ethanol (ETOH) < 10 mg/dL; Globulin 3.6 g/dL (1.7-4.1); Glucose 117 mg/dL (80-110); HEMOLYSIS 18 (0-50); Lactate (Lactic Acid) 3.1 mmol/L (0.7-2.1); Lactate Dehydrogenase 583 U/L (313-618); Lipase 64 U/L (23-300); Potassium 4.2 mmol/L (3.4-5.1); Sodium 132 mmol/L (137-145); Total Protein 6.7 g/dL (6.3-8.2)
[2020-05-10] MEDS: LORazepam 2 MG/ML INJ 1 MG IV (10:12)
[2020-05-10 10:13] LABS: Troponin I < 0.012 ng/mL (0.01-0.034)
[2020-05-10 10:16] LABS: CKMB % Relative Index 0.9 % (1.5-5.0); Creatine Kinase MB 1.47 ng/mL (<2.37)
--- NOTE | 2020-05-10 10:37 | PC.NURSE ---
Alert/oriented, anxious/nauseated. Ativan and zofran given. Two IVs started. CT done. Now pt feeling more relaxed.
[2020-05-10 11:42] LABS: Reflexed Lactate in 2 Hours Y
[2020-05-10] MEDS: SODIUM CHLORIDE 0.9% 1,000 ML 1000 ML IV (12:35)
[2020-05-10] MEDS: PANTOPRAZOLE 40 MG VIAL 80 MG IV (12:35)
[2020-05-10] MEDS: OCTREOTIDE 100 MCG/ML VIAL 50 MCG IV (12:36)
[2020-05-10] MEDS: PANTOPRAZOLE 80 MG in SODIUM CHLORIDE 0.9% 100 ML 10 ML IV (12:37)
[2020-05-10] MEDS: OCTREOTIDE 500 MCG in SODIUM CHLORIDE 0.9% 100 ML 10.1 ML IV (13:24)
[2020-05-10] MEDS: metroNIDAZOLE 500 MG/100 ML PIGGYBACK 100 MG IV (13:24)
[2020-05-10] MEDS: CEFTRIAXONE 2 GM/50 ML FROZ.PIGGY IV (14:36)
== END 2020-05-10 15:03 | disposition short-term general hospital (02) ==
PROVIDERS: Emergency Provider Emergency Medicine; PCP Student in an Organized Health Care Education/Training Program
DX: K74.69 Other cirrhosis of liver (principal); K92.0 Hematemesis; R10.84 Generalized abdominal pain; I85.01 Esophageal varices with bleeding; K52.9 Noninfective gastroenteritis and colitis, unspecified; E87.2 Acidosis; Z86.19 Personal history of other infectious and parasitic diseases
CPT/HCPCS: 36415; 74177; 80053; 80320; 82550; 82553; 83605; 83615; 83690; 84484; 85025; 85610; 85730; 86850; 86900; 86901; 93005; 96365; 96366; 96367; 96368; 96375; 99285; C9113; J0696; J2060; J2354; J2405; Q9967

== ENCOUNTER 2020-05-20 11:40 | Emergency (ER) | payer OTHER, MEDICAID, SELFPAY ==
[2020-05-20 11:50] VITALS: BP 183/93; PULSE 99; RESP 20; TEMP 36.7; O2SAT 98; BMI 23.7
[2020-05-20 13:14] VITALS: BP 164/77; PULSE 94; RESP 22; O2SAT 100
--- NOTE | 2020-05-20 14:08 | ED_ITS ---
HPI - Allergic Reaction General Chief complaint: Allergic Reaction Stated complaint: ALLERGIC REACTION Time Seen by Provider: 05/20/20 13:41 Source: patient Mode of arrival: Ambulatory Limitations: no limitations History of Present Illness HPI narrative: Patient is 65-year-old male who presents with bilateral lower extremity swelling and swelling in his scrotum and bumps on his tongue. He was actually seen evaluated here 05/10/2020 transferred to [facility] for GI bleed. He was discharged on 05/12/2020 his hemoglobin at that time was 8.0 and hematocrit was 23.8. He was placed on Protonix and spironolactone. He says over the course the last 3 days he has had increased swelling in his scrotum and legs. He has no difficulty breathing he has no cough he has no chest pain or shortness of breath. Related Data Home Medications Medication Instructions Recorded Confirmed methadone 10 mg PO QID 07/09/19 05/16/20 pantoprazole 40 mg tablet,delayed 40 mg PO DAILY 05/16/20 05/16/20 release vancomycin 125 mg capsule 125 mg PO QID 05/16/20 05/16/20 Previous Rx's Medication Instructions Recorded spironolactone 50 mg tablet 50 mg PO DAILY #90 tab 01/24/20 furosemide [Lasix] 20 mg PO QAM #3 tab 05/20/20 Allergies Allergy/AdvReac Type Severity Reaction Status Date / Time acetaminophen [From Tylenol] AdvReac Unknown Verified 05/20/20 11:54 Review of Systems Review of Systems Narrative: GENERAL: Denies chills, fatigue, malaise, fever, sweats, travel HEENT: Denies sinus pain, ear pain, sore throat, difficulty swallowing, neck pain RESPIRATORY: Denies dyspnea, cough, wheezing, hemoptysis, sputum. CARDIOVASCULAR: Denies chest pain, palpitations, orthopnea, edema GASTROINTESTINAL: Denies nausea, vomiting, abdominal pain, diarrhea, constipation, melena. : + edema see HPI Denies dysuria, frequency, incontinence, hematuria, urinary retention, flank pain. MUSCULOSKELETAL:+ edema see HPI Denies weakness, joint pain, or bony pain SKIN: No rash, no erythema, no pruritus NEUROLOGIC: Denies weakness, dizziness, headache, numbness, change in speech, confusion PSYCHIATRIC: No concerning psychosocial issues. 12 point review of systems is negative except for those stated above and HPI Patient History Medical History Bipolar disorder (Chronic Unknown) Chronic pain syndrome (Chronic Unknown) Cirrhosis (Chronic Unknown) DDD (degenerative disc disease), lumbosacral (Chronic Unknown) GERD (gastroesophageal reflux disease) (Chronic Unknown) Hepatitis C (Chronic Unknown) Hepatocellular carcinoma (Chronic Unknown) Hx of head injury (Resolved 1984) Hypertension (Chronic Unknown) Uncomplicated opioid dependence (Chronic) Surgical History History of surgery of liver (Resolved ~2011) Hx of skin graft (Resolved 1995) Family History Mother Age: 86 Breast cancer genetic susceptibility Social History Smoking Status: Current every day smoker Smoking Status: Current every day smoker alcohol intake frequency: 0-2 drinks per day Substance Use Type: does not use Exam Initial Vital Signs Initial Vital Signs: Vital Signs Temperature 98.1 F 05/20/20 11:50 Pulse Rate 99 H 05/20/20 11:50 Respiratory Rate 20 05/20/20 11:50 Blood Pressure 183/93 H 05/20/20 11:50 Pulse Oximetry 98 05/20/20 11:50 GENERAL: Well-appearing, well-nourished and in no acute distress. HEENT: Head atraumatic,EOMI, pupils reactive, face symmetric, he does have some bumps on his tongue with there is no significant tongue swelling lip swelling uvula swelling or any airway compromise. CARDIOVASCULAR: Regular rate and rhythm without murmurs, rubs or gallops. RESPIRATORY: Breath sounds equal bilaterally, no wheezes rales or rhonchi. ABDOMEN: Soft, nontender. Normoactive bowel sounds all 4 quadrants. No guarding or rebound. EXTREMITIES: Normal range of motion, no clubbing. Bilateral edema Neurovascularly intact NEUROLOGICAL: Alert and oriented x4.Normal gait and speech. SKIN: Warm, dry, no laceration, no petechiae, no rashes or lesions. Course Orders Ordered: ED Orders 05/20/20 14:19 XR chest 2V Stat EKG-12 Lead Stat 05/20/20 14:33 Complete Blood Count AUTO DIFF Stat Comprehensive Metabolic Panel Stat Lipase Stat NT-proBNP (BNP-Adult 18+) Stat Troponin & CK Cardiac Panel Stat Discontinued Medications Furosemide (Lasix) 40 mg IV NOW ONE Stop: 05/20/20 15:39 Last Admin: 05/20/20 16:22 Dose: Not Given Documented by: BLAISE Furosemide (Lasix) 40 mg PO NOW ONE Stop: 05/20/20 16:09 Last Admin: 05/20/20 16:20 Dose: 40 mg Documented by: BLAISE Vital Signs Vital signs: Vital Signs - 8 hr 05/20/20 11:50 05/20/20 13:14 05/20/20 14:45 Temperature 98.1 F Pulse Rate 99 H 94 H 71 Respiratory Rate 20 22 16 Blood Pressure 183/93 H Blood Pressure [Right Arm] 164/77 H 143/73 H Pulse Oximetry 98 100 100 05/20/20 16:41 Temperature Pulse Rate 72 Respiratory Rate 18 Blood Pressure Blood Pressure [Right Arm] 143/60 H Pulse Oximetry 100 MDM - Allergic Reaction Lab Data Attestation: I reviewed the patient's lab results. Result diagrams: 05/20/20 14:33 05/20/20 14:33 Labs: Lab Results 05/20/20 05/20/20 Range/Units 14:33 14:33 WBC 7.7 (4.5-11.0) X10^3/uL RBC 2.68 L (4.5-5.9) X10^6/uL Hgb 8.8 L (13.5-17.5) g/dL Hct 25.1 L (41-53) % MCV 93.6 (80-100) fL MCH 32.8 (26-34) PG MCHC 35.1 (30-36) % RDW 17.2 H (11.6-14.8) % Plt Count 125 L (150-400) X10^3/uL Neut % (Auto) 82.1 H (50-75) % Lymph % (Auto) 4.7 L (25-40) % [place] % (Auto) 12.3 (3-14) % Eos % (Auto) 0.6 L (2-4) % Baso % (Auto) 0.3 (0-2) % Neut # (Auto) 6300 (5128-2916) /uL Lymph # (Auto) 400 L (3899-7952) /uL [place] # (Auto) 900 (0-900) /uL Eos # (Auto) 0 (0-450) /uL Baso # (Auto) 0 (0-100) /uL Sodium 130 L (137-145) mmol/L Potassium 4.5 (3.4-5.1) mmol/L Chloride 99 (98-107) mmol/L Carbon Dioxide 28 (22-32) mmol/L BUN 6 L (9-20) mg/dL Creatinine 0.60 L (0.66-1.25) mg/dL Estimated GFR > 60.0 (>60) mL/min BUN/Creatinine Ratio 10.0 (6-22) Glucose 99 (80-110) mg/dL Calcium 7.9 L (8.4-10.2) mg/dL Total Bilirubin 1.7 H (0.2-1.3) mg/dL AST 92 H (17-59) IU/L ALT 39 (<50) IU/L Alkaline Phosphatase 123 (38-126) U/L Total Creatine Kinase 125 (55-170) U/L CK-MB (CK-2) 1.36 (<2.37) ng/mL CK-MB (CK-2) Rel Index 1.1 L (1.5-5.0) % Troponin I < 0.012 (0.01-0.034) ng/mL NT-Pro-B Natriuret Pep 495 H (<125) pg/mL Total Protein 5.7 L (6.3-8.2) g/dL Albumin 2.6 L (3.5-5.0) g/dL Globulin 3.1 (1.7-4.1) g/dL Albumin/Globulin Ratio 0.8 L (1.0-2.8) Lipase 122 (23-300) U/L Imaging Data Chest x-ray: Radiologist's Impression: PROCEDURE: XR CHEST 2V INDICATIONS: edema TECHNIQUE: 2 views of the chest were acquired. COMPARISON: [facility], CHEST 2 VIEW, 10/08/2010, 14:13. FINDINGS: Surgical changes and devices: None. Lungs and pleura: Small bilateral effusions are identified (left greater than right). Interstitial prominence within the perihilar regions is noted. No large area of pulmonary consolidation is evident. There may be vague groundglass attenuation versus overlying soft tissues involving the right mid to lower lung. Mediastinum: Mediastinal contours are normal. Heart size is normal. Bones and chest wall: No suspicious bony abnormalities. Soft tissues appear unremarkable. IMPRESSION: 1. Small bilateral pleural effusions. 2. Possible mild vascular congestion. Dictated by: Flakito Soto M.D. on 05/20/2020 at 13:42 ECG Data Attestation: I personally reviewed and interpreted this ECG as follows: Prior ECG tracings: available for review Interpretation: Sinus rhythm rate 74 p.r. interval 92 QRS [address] elevation depression or T-wave inversions similar to previous EKG MDM Narrative Medical decision making narrative: Patient has no respiratory symptoms he appears to have bilateral pitting edema no signs of CHF. His hemoglobin has improved from 05/12/2020. He is not actively bleeding he has no other signs of GI bleed. He is taking spironolactone. At this time he is given a dose of Las ix in the emergency department and a prescription for the next few days to see how he response. I discussed all findings with the patient, Education has been performed regarding treatment plan, diagnosis, warning signs and symptoms and all concerns have been addressed. Verbally agree with and understood all of the above. Discharge Plan Departure Patient Disposition: Home Clinical Impression: Edema, peripheral Discharge Date/Time: 05/20/20 17:26 Instructions: DI for Dependent Edema Activity Restrictions/Additional Instructions: *You have been diagnosed with peripheral edema *What to do: It is unclear the cause of your water retention. You may require for the testing please make an appointment with Dr. Marcum call tomorrow to schedule one *Continue to take medications as directed Lasix 20 mg once a day take in the morning for the next 3 days--sent to [facility] in [place] *Follow up with your primary care provider in 2-3 days *Return to ER if you should have increased swelling, shortness of breath chest pain or any new, worsening or concerning symptoms Prescriptions: New furosemide [Lasix] 20 mg tablet 20 mg PO QAM Qty: 3 RF: 0 No Action spironolactone 50 mg tablet 50 mg PO DAILY Qty: 90 RF: 1 pantoprazole 40 mg tablet,delayed release (DR/EC) 40 mg PO DAILY RF: 0 vancomycin 125 mg capsule 125 mg PO QID RF: 0 methadone 10 mg tablet 10 mg PO QID RF: 0 Referrals: Ricky Lorenzo MD [Primary Care Provider] -
--- NOTE | 2020-05-20 14:19 | DI.RAD.S_ITS ---
PROCEDURE: XR CHEST 2V INDICATIONS: edema TECHNIQUE: 2 views of the chest were acquired. COMPARISON: [facility], , CHEST 2 VIEW, 10/08/2010, 14:13. FINDINGS: Surgical changes and devices: None. Lungs and pleura: Small bilateral effusions are identified (left greater than right). Interstitial prominence within the perihilar regions is noted. No large area of pulmonary consolidation is evident. There may be vague groundglass attenuation versus overlying soft tissues involving the right mid to lower lung. Mediastinum: Mediastinal contours are normal. Heart size is normal. Bones and chest wall: No suspicious bony abnormalities. Soft tissues appear unremarkable. IMPRESSION: 1. Small bilateral pleural effusions. 2. Possible mild vascular congestion. Dictated by: Flakito Soto M.D. on 05/20/2020 at 13:42 Approved by: Flakito Soto M.D. on 05/20/2020 at 13:44
[2020-05-20 14:39] LABS: Add Manual Diff / Slide Review NO; Basophils Absolute Auto 0 /uL (0-100); Basophils Percent Auto 0.3 % (0-2); Eosinophils Absolute Auto 0 /uL (0-450); Eosinophils Percent Auto 0.6 % (2-4); Hematocrit 25.1 % (41-53); Hemoglobin 8.8 g/dL (13.5-17.5); Lymphocytes Absolute Auto 400 /uL (1100-4500); Lymphocytes Percent Auto 4.7 % (25-40); Mean Corpuscular HGB Conc 35.1 % (30-36); Mean Corpuscular Hemoglobin 32.8 PG (26-34); Mean Corpuscular Volume 93.6 fL (80-100); Monocytes Absolute Auto 900 /uL (0-900); Monocytes Percent Auto 12.3 % (3-14); Neutrophils Absolute Auto 6300 /uL (1500-7000); Neutrophils Percent Auto 82.1 % (50-75); Platelet Count 125 X10^3/uL (150-400); Red Blood Cell Count 2.68 X10^6/uL (4.5-5.9); Red Cell Distribution Width 17.2 % (11.6-14.8); White Blood Cell Count 7.7 X10^3/uL (4.5-11.0)
[2020-05-20 14:45] VITALS: BP 143/73; PULSE 71; RESP 16; O2SAT 100
[2020-05-20 14:56] LABS: Alanine Aminotransferase 39 IU/L (<50); Albumin 2.6 g/dL (3.5-5.0); Albumin Globulin Ratio 0.8 (1.0-2.8); Alkaline Phosphatase 123 U/L (38-126); Aspartate Aminotransferase 92 IU/L (17-59); Bilirubin Total 1.7 mg/dL (0.2-1.3); Blood Urea Nitrogen 6 mg/dL (9-20); Calcium 7.9 mg/dL (8.4-10.2); Carbon Dioxide 28 mmol/L (22-32); Chloride 99 mmol/L (98-107); Creatine Kinase 125 U/L (55-170); Estimated Glomerular Filt Rate > 60.0 mL/min (>60); Globulin 3.1 g/dL (1.7-4.1); Glucose 99 mg/dL (80-110); HEMOLYSIS < 15 (0-50); Lipase 122 U/L (23-300); Potassium 4.5 mmol/L (3.4-5.1); Sodium 130 mmol/L (137-145); Total Protein 5.7 g/dL (6.3-8.2)
[2020-05-20 15:08] LABS: NT-proBNP (BNP-Adult 18+) 495 pg/mL (<125); Troponin I < 0.012 ng/mL (0.01-0.034)
[2020-05-20 15:11] LABS: CKMB % Relative Index 1.1 % (1.5-5.0); Creatine Kinase MB 1.36 ng/mL (<2.37)
[2020-05-20] MEDS: FUROSEMIDE 40 MG TABLET PO (16:20)
[2020-05-20 16:41] VITALS: BP 143/60; PULSE 72; RESP 18; O2SAT 100
== END 2020-05-20 17:26 | disposition home or self-care (01) ==
PROVIDERS: Emergency Provider Emergency Medicine; PCP Student in an Organized Health Care Education/Training Program
DX: R60.9 Edema, unspecified (principal)
CPT/HCPCS: 36415; 71046; 80053; 82550; 82553; 83690; 83880; 84484; 85025; 93005; 99283; 99284

== ENCOUNTER → 2020-05-26 08:11 | Outpatient (CLI) | payer OTHER, MEDICAID, SELFPAY ==
[2020-05-26 10:37] LABS: Blood Urea Nitrogen 6 mg/dL (9-20); Calcium 7.8 mg/dL (8.4-10.2); Carbon Dioxide 31 mmol/L (22-32); Chloride 94 mmol/L (98-107); Estimated Glomerular Filt Rate > 60.0 mL/min (>60); Glucose 134 mg/dL (80-110); HEMOLYSIS < 15 (0-50); Magnesium 1.9 mg/dL (1.6-2.3); Phosphorous 2.9 mg/dL (2.3-3.7); Potassium 3.9 mmol/L (3.4-5.1); Sodium 129 mmol/L (137-145)
== END ==
PROVIDERS: PCP Student in an Organized Health Care Education/Training Program; Referring Provider Internal Medicine Gastroenterology; Visit Provider Internal Medicine Gastroenterology
DX: K74.69 Other cirrhosis of liver (principal)
CPT/HCPCS: 36415; 80048; 83735; 84100

== ENCOUNTER 2020-05-26 14:54 | Observation (INO) | payer OTHER, MEDICAID, SELFPAY ==
[2020-05-26] VITALS (19 sets, daily range): BP systolic 113–158; BP diastolic 56–92; PULSE 64–92; RESP 16–17; TEMP 36.7–37; O2SAT 85–100; BMI 26.0; BMI 23.8
--- NOTE | 2020-05-26 17:24 | ED.RECABL ---
HPI - Recheck/Abnormal Lab/Rx <AMITA Roque - Last Filed: 05/26/20 21:40> General Chief Complaint: Recheck/Abnormal Lab/Rx Stated Complaint: Bad Reaction To Medication, Swelling Time Seen by Provider: 05/26/20 17:08 Source: patient Mode of arrival: Ambulatory History of Present Illness HPI narrative: 65-year-old male with a history of liver CA, hepatitis C, and cirrhosis, presents emergency department for testicular swelling. Patient states he was seen on 05/20/2020 in the emergency department here for swelling of his lower extremities that started 2 weeks ago and was put on Lasix. Patient then had a follow-up with his GI provider who continued his Lasix. However, over the past few days he has noticed bilateral testicular swelling. Patient denies any symptoms such as difficulty urinating, penile discharge, chest pain, shortness of breath, nausea, vomiting, diarrhea, fevers, chills, or other concerns. Does note some ascites, he called his GI provider today who recommended evaluation in the emergency department. Patient states that he has had multiple liver tumors removed. He was initially treated for hepatitis-C with 1 medication, he was doing well and then his level spiked again when he developed another tumor. He was treated with another medication, he was doing well on this medication but reports that his hepatitis C came back when he discontinued the medication. Has not assumed alcohol for 15 to 20years. Related Data Home Medications Medication Instructions Recorded Confirmed methadone 10 mg PO TID 07/09/19 06/03/20 pantoprazole 40 mg tablet,delayed 40 mg PO BID 05/16/20 06/03/20 release furosemide [Lasix] 40 mg PO DAILY 05/27/20 06/03/20 Previous Rx's Medication Instructions Recorded spironolactone 100 mg PO DAILY #0 tab 05/27/20 Allergies Allergy/AdvReac Type Severity Reaction Status Date / Time acetaminophen [From Tylenol] AdvReac Unknown Verified 06/03/20 14:56 Review of Systems <AMITA Roque - Last Filed: 05/26/20 21:40> Review of Systems Narrative: REVIEW OF SYSTEMS: GENERAL: Denies fever or chills. HENT: No head trauma, hearing loss or sore throat. EYES: No vision changes. CARDIOVASCULAR: No chest pain. Complains of lower extremity edema. RESPIRATORY: No shortness of breath or cough. GASTROINTESTINAL: No nausea, vomiting, diarrhea, or constipation. GENITOURINARY: No flank pain or dysuria, complains of scrotal edema, see HPI. MUSCULOSKELETAL: No pain, weakness, or deformities. INTEGUMENTARY: No rash. NEURO: No numbness or tingling. PSYCH: No behavior or mood changes. Patient History <AMITA Roque - Last Filed: 05/26/20 21:40> Medical History Bipolar disorder (Chronic Unknown) Chronic pain syndrome (Chronic Unknown) Cirrhosis (Chronic Unknown) DDD (degenerative disc disease), lumbosacral (Chronic Unknown) GERD (gastroesophageal reflux disease) (Chronic Unknown) Hepatitis C (Chronic Unknown) Hepatocellular carcinoma (Chronic Unknown) Hx of head injury (Resolved 1984) Hypertension (Chronic Unknown) Uncomplicated opioid dependence (Chronic) Surgical History History of surgery of liver (Resolved ~2011) Hx of skin graft (Resolved 1995) Family History Mother Age: 86 Breast cancer genetic susceptibility Social History household members: other Smoking Status: Current every day smoker alcohol intake: former Smoking Status: Current every day smoker alcohol intake frequency: 0-2 drinks per day Substance Use Type: does not use Exam <AMITA Roque - Last Filed: 05/26/20 21:40> Initial Vital Signs Initial Vital Signs: Vital Signs Temperature 98.1 F 05/26/20 15:03 Pulse Rate 90 05/26/20 15:03 Respiratory Rate 16 05/26/20 15:03 Blood Pressure 158/82 H 05/26/20 15:03 Pulse Oximetry 99 05/26/20 15:03 PHYSICAL EXAMINATION: GENERAL: Well groomed, alert, and cooperative. Answers questions promptly and appropriately. Vital signs noted. HENT: Normocephalic, atraumatic. EYES: PERRLA, EOMI, Conjunctiva pink, sclera white, no periorbital swelling. CARDIOVASCULAR: S1 and S2 sounds normal. Regular rate and rhythm, no murmurs, clicks, or bruits. No pedal edema. RESPIRATORY: Normal respiratory rate, trachea midline, airway patent. No stridor, nasal flaring or accessory muscle use. Lungs are clear in all dow without wheeze, rhonchi, or crackles. GASTROINTESTINAL: Bowel sounds normoactive. Abdomen nontender, slightly distended, mild ascites. No organomegaly, no palpable masses. GENITALURINARY: No flank tenderness. Significant scrotal edema more on the right versus the left, minute amount of erythema noted to proximal aspect of scrotum. No significant tenderness. MUSCULOSKELETAL: Normal gait and coordination. Equal tone and mass bilaterally. EXTREMITIES: CMS intact, 2+ pitting edema bilaterally to lower extremities. SKIN: Warm, dry, soft, appropriate color for ethnicity. No lesions, rashes, or wounds to visualized areas. NEURO: Alert and Oriented X 3. Good coordination. No ataxia, or sensory deficits, or cognitive issues. PSYCH: Appropriate affect and mood. <Alba Mata MD - Last Filed: 06/13/20 18:10> Initial Vital Signs Initial Vital Signs: Vital Signs Temperature 98.1 F 05/26/20 15:03 Pulse Rate 90 05/26/20 15:03 Respiratory Rate 16 05/26/20 15:03 Blood Pressure 158/82 H 05/26/20 15:03 Pulse Oximetry 99 05/26/20 15:03 Course <AMITA Roque - Last Filed: 05/26/20 21:40> Course Course Narrative: Patient was given 80mg of Lasix. 1936: Approximately 1800 mL of urine out. 1903: I spoke with Dr. Sousa who requested I speak with patient's GI for consultation. Patient recieved GI care at [facility] and for hepatocellular cancer. 2010: I spoke with GI doctor from [facility], Dr. Ponce recommend paracentesis and diuresis. 2039: I spoke with AMITA Montes discussed possible admission for diuresis, Dr. Ponce's contact numbers were given progress. 2114: AMITA Montes in the emergency department, excepts patient or admission. Orders Ordered: Discontinued Medications Furosemide (Lasix) 80 mg IV NOW ONE Stop: 05/26/20 17:37 Last Admin: 05/26/20 18:14 Dose: 80 mg Documented by: BLAISE Furosemide (Lasix) 40 mg IV DAILY [facility] Furosemide (Lasix) 40 mg PO DAILY [facility] Last Admin: 05/27/20 08:16 Dose: 40 mg Documented by: KYLAH Ibuprofen (Advil) 600 mg PO Q6HR PRN PRN Reason: Fever/Mild Pain (1-3) Methadone HCl (Methadone) 10 mg PO TID [facility] Last Admin: 05/27/20 08:16 Dose: 10 mg Documented by: Admin: 05/27/20 01:27 Dose: 10 mg Documented by: CARMEN Stored In Pharmacy 1 each PO PRN PRN PRN Reason: PER PROTOCOL Pantoprazole Sodium (Protonix) 40 mg PO DAILY [facility] Last Admin: 05/27/20 08:16 Dose: 40 mg Documented by: KYLAH Sodium Chloride (Normal Saline 0.9% Flush) 10 ml IV PRN PRN PRN Reason: Flush Sodium Chloride (Normal Saline 0.9% Flush) 10 ml IV BID [facility] Last Admin: 05/27/20 08:17 Dose: 10 ml Documented by: KYLAH Spironolactone (Aldactone) 100 mg PO DAILY [facility] Last Admin: 05/27/20 08:16 Dose: 100 mg Documented by: KYLAH Consultations Consultation #1: Patient staffed with Dr. Mata discussed test, test results, plan of care. Vital Signs Vital signs: Vital Signs - 8 hr 05/26/20 15:03 05/26/20 17:50 05/26/20 19:32 Temperature 98.1 F Pulse Rate 90 70 64 Respiratory Rate 16 16 Blood Pressure 158/82 H 137/70 Blood Pressure [Left Arm] 118/64 Pulse Oximetry 99 98 98 05/26/20 19:33 05/26/20 19:40 05/26/20 19:50 Temperature Pulse Rate 64 70 64 Respiratory Rate Blood Pressure Blood Pressure [Left Arm] Pulse Oximetry 98 98 99 05/26/20 20:00 Temperature Pulse Rate 86 Respiratory Rate Blood Pressure Blood Pressure [Left Arm] Pulse Oximetry 97 <Alba Mata MD - Last Filed: 06/13/20 18:10> Orders Ordered: Discontinued Medications Furosemide (Lasix) 80 mg IV NOW ONE Stop: 05/26/20 17:37 Last Admin: 05/26/20 18:14 Dose: 80 mg Documented by: BLAISE Furosemide (Lasix) 40 mg IV DAILY [facility] Furosemide (Lasix) 40 mg PO DAILY [facility] Last Admin: 05/27/20 08:16 Dose: 40 mg Documented by: KYLAH Ibuprofen (Advil) 600 mg PO Q6HR PRN PRN Reason: Fever/Mild Pain (1-3) Methadone HCl (Methadone) 10 mg PO TID [facility] Last Admin: 05/27/20 08:16 Dose: 10 mg Documented by: Admin: 05/27/20 01:27 Dose: 10 mg Documented by: CARMEN Stored In Pharmacy 1 each PO PRN PRN PRN Reason: PER PROTOCOL Pantoprazole Sodium (Protonix) 40 mg PO DAILY [facility] Last Admin: 05/27/20 08:16 Dose: 40 mg Documented by: KYLAH Sodium Chloride (Normal Saline 0.9% Flush) 10 ml IV PRN PRN PRN Reason: Flush Sodium Chloride (Normal Saline 0.9% Flush) 10 ml IV BID [facility] Last Admin: 05/27/20 08:17 Dose: 10 ml Documented by: KYLAH Spironolactone (Aldactone) 100 mg PO DAILY [facility] Last Admin: 05/27/20 08:16 Dose: 100 mg Documented by: KYLAH Vital Signs Vital signs: Vital Signs - 8 hr 05/26/20 15:03 05/26/20 17:50 05/26/20 19:32 Temperature 98.1 F Pulse Rate 90 70 64 Respiratory Rate 16 16 Blood Pressure 158/82 H 137/70 Blood Pressure [Left Arm] 118/64 Pulse Oximetry 99 98 98 05/26/20 19:33 05/26/20 19:40 05/26/20 19:50 Temperature Pulse Rate 64 70 64 Respiratory Rate Blood Pressure Blood Pressure [Left Arm] Pulse Oximetry 98 98 99 05/26/20 20:00 Temperature Pulse Rate 86 Respiratory Rate Blood Pressure Blood Pressure [Left Arm] Pulse Oximetry 97 MDM - Recheck/Abnormal Lab/Rx <AMITA Roque - Last Filed: 05/26/20 21:40> Medical Records Attestation: I reviewed the patient's medical records. Lab Data Attestation: I reviewed the patient's lab results. Result diagrams: 05/27/20 05:52 05/27/20 05:52 Labs: Lab Results 05/26/20 05/26/20 05/26/20 Range/Units 17:30 17:30 17:30 WBC 5.7 (4.5-11.0) X10^3/uL RBC 2.79 L (4.5-5.9) X10^6/uL Hgb 8.7 L (13.5-17.5) g/dL Hct 25.3 L (41-53) % MCV 90.8 (80-100) fL MCH 31.2 (26-34) PG MCHC 34.4 (30-36) % RDW 16.4 H (11.6-14.8) % Plt Count 100 L (150-400) X10^3/uL Neut % (Auto) 78.6 H (50-75) % Lymph % (Auto) 5.8 L (25-40) % Brooks % (Auto) 14.3 H (3-14) % Eos % (Auto) 0.7 L (2-4) % Baso % (Auto) 0.6 (0-2) % Neut # (Auto) 4400 (7060-7010) /uL Lymph # (Auto) 300 L (8538-8345) /uL Brooks # (Auto) 800 (0-900) /uL Eos # (Auto) 0 (0-450) /uL Baso # (Auto) 0 (0-100) /uL PT 15.0 H (10.1-12.7) SECONDS INR 1.3 (0.9-1.3) APTT 30 (26.4-36.2) SECONDS Sodium 127 L (137-145) mmol/L Potassium 3.7 (3.4-5.1) mmol/L Chloride 94 L (98-107) mmol/L Carbon Dioxide 31 (22-32) mmol/L BUN 7 L (9-20) mg/dL Creatinine 0.70 (0.66-1.25) mg/dL Estimated GFR > 60.0 (>60) mL/min BUN/Creatinine Ratio 10.0 (6-22) Glucose 147 H (80-110) mg/dL Calcium 7.6 L (8.4-10.2) mg/dL Total Bilirubin 1.4 H (0.2-1.3) mg/dL AST 70 H (17-59) IU/L ALT 32 (<50) IU/L Alkaline Phosphatase 111 (38-126) U/L Ammonia (9-30) umol/L NT-Pro-B Natriuret Pep 531 H (<125) pg/mL Total Protein 5.4 L (6.3-8.2) g/dL Albumin 2.4 L (3.5-5.0) g/dL Globulin 3.0 (1.7-4.1) g/dL Albumin/Globulin Ratio 0.8 L (1.0-2.8) / Range/Units 17:30 WBC (4.5-11.0) X10^3/uL RBC (4.5-5.9) X10^6/uL Hgb (13.5-17.5) g/dL Hct (41-53) % MCV (80-100) fL MCH (26-34) PG MCHC (30-36) % RDW (11.6-14.8) % Plt Count (150-400) X10^3/uL Neut % (Auto) (50-75) % Lymph % (Auto) (25-40) % Brooks % (Auto) (3-14) % Eos % (Auto) (2-4) % Baso % (Auto) (0-2) % Neut # (Auto) (5048-2158) /uL Lymph # (Auto) (6336-0119) /uL Brooks # (Auto) (0-900) /uL Eos # (Auto) (0-450) /uL Baso # (Auto) (0-100) /uL PT (10.1-12.7) SECONDS INR (0.9-1.3) APTT (26.4-36.2) SECONDS Sodium (137-145) mmol/L Potassium (3.4-5.1) mmol/L Chloride (98-107) mmol/L Carbon Dioxide (22-32) mmol/L BUN (9-20) mg/dL Creatinine (0.66-1.25) mg/dL Estimated GFR (>60) mL/min BUN/Creatinine Ratio (6-22) Glucose (80-110) mg/dL Calcium (8.4-10.2) mg/dL Total Bilirubin (0.2-1.3) mg/dL AST (17-59) IU/L ALT (<50) IU/L Alkaline Phosphatase (38-126) U/L Ammonia < 9 L (9-30) umol/L NT-Pro-B Natriuret Pep (<125) pg/mL Total Protein (6.3-8.2) g/dL Albumin (3.5-5.0) g/dL Globulin (1.7-4.1) g/dL Albumin/Globulin Ratio (1.0-2.8) Urine Dip Bedside Urine Glucose Negative Bedside Urine Bilirubin - Negative Bedside Urine Ketone - Negative Urine Specific [place] 1.020 Bedside Urine Occult Blood - Negative Bedside Urine pH 6.0 Bedside Urine Protein - Negative Bedside Urine Urobilinogen - Negative Bedside Urine Nitrite - Negative Bedside Urine Leukocytes - Negative Esterase MDM Narrative Medical decision making narrative: 65-year-old male presenting to the emergency department for scrotal swelling. I suspect patient's scrotal swelling and increased lower extremity edema is due to recent administration of IV fluids beginning of the month when patient was treated for a gastric ulcer. Patient also has confounding liver CA, hepatitis and cirrhosis worsening fluid overload. Scrotal swelling is most likely due to dependent edema. Discussed with GI importance of diuresis and how paracentesis may improve scrotal swelling. No immediate concerns for infection due to lack of significant redness, torsion due to lack of pain, or gangrene due to lack of gangrenous or the tissue. No signs of sepsis, no tachycardia, normal white blood cell count, afebrile. Patient is hemodynamically stable. Able to urinate without difficulty. Patient admitted for further workup in diuresis. <Alba Mata MD - Last Filed: 06/13/20 18:10> Lab Data Labs: Lab Results 05/26/20 05/26/20 05/26/20 Range/Units 17:30 17:30 17:30 WBC 5.7 (4.5-11.0) X10^3/uL RBC 2.79 L (4.5-5.9) X10^6/uL Hgb 8.7 L (13.5-17.5) g/dL Hct 25.3 L (41-53) % MCV 90.8 (80-100) fL MCH 31.2 (26-34) PG MCHC 34.4 (30-36) % RDW 16.4 H (11.6-14.8) % Plt Count 100 L (150-400) X10^3/uL Neut % (Auto) 78.6 H (50-75) % Lymph % (Auto) 5.8 L (25-40) % Brooks % (Auto) 14.3 H (3-14) % Eos % (Auto) 0.7 L (2-4) % Baso % (Auto) 0.6 (0-2) % Neut # (Auto) 4400 (6690-1475) /uL Lymph # (Auto) 300 L (9948-9063) /uL Brooks # (Auto) 800 (0-900) /uL Eos # (Auto) 0 (0-450) /uL Baso # (Auto) 0 (0-100) /uL PT 15.0 H (10.1-12.7) SECONDS INR 1.3 (0.9-1.3) APTT 30 (26.4-36.2) SECONDS Sodium 127 L (137-145) mmol/L Potassium 3.7 (3.4-5.1) mmol/L Chloride 94 L (98-107) mmol/L Carbon Dioxide 31 (22-32) mmol/L BUN 7 L (9-20) mg/dL Creatinine 0.70 (0.66-1.25) mg/dL Estimated GFR > 60.0 (>60) mL/min BUN/Creatinine Ratio 10.0 (6-22) Glucose 147 H (80-110) mg/dL Calcium 7.6 L (8.4-10.2) mg/dL Total Bilirubin 1.4 H (0.2-1.3) mg/dL AST 70 H (17-59) IU/L ALT 32 (<50) IU/L Alkaline Phosphatase 111 (38-126) U/L Ammonia (9-30) umol/L NT-Pro-B Natriuret Pep 531 H (<125) pg/mL Total Protein 5.4 L (6.3-8.2) g/dL Albumin 2.4 L (3.5-5.0) g/dL Globulin 3.0 (1.7-4.1) g/dL Albumin/Globulin Ratio 0.8 L (1.0-2.8) 05/26/20 Range/Units 17:30 WBC (4.5-11.0) X10^3/uL RBC (4.5-5.9) X10^6/uL Hgb (13.5-17.5) g/dL Hct (41-53) % MCV (80-100) fL MCH (26-34) PG MCHC (30-36) % RDW (11.6-14.8) % Plt Count (150-400) X10^3/uL Neut % (Auto) (50-75) % Lymph % (Auto) (25-40) % Brooks % (Auto) (3-14) % Eos % (Auto) (2-4) % Baso % (Auto) (0-2) % Neut # (Auto) (5697-3539) /uL Lymph # (Auto) (7076-6519) /uL Brooks # (Auto) (0-900) /uL Eos # (Auto) (0-450) /uL Baso # (Auto) (0-100) /uL PT (10.1-12.7) SECONDS INR (0.9-1.3) APTT (26.4-36.2) SECONDS Sodium (137-145) mmol/L Potassium (3.4-5.1) mmol/L Chloride (98-107) mmol/L Carbon Dioxide (22-32) mmol/L BUN (9-20) mg/dL Creatinine (0.66-1.25) mg/dL Estimated GFR (>60) mL/min BUN/Creatinine Ratio (6-22) Glucose (80-110) mg/dL Calcium (8.4-10.2) mg/dL Total Bilirubin (0.2-1.3) mg/dL AST (17-59) IU/L ALT (<50) IU/L Alkaline Phosphatase (38-126) U/L Ammonia < 9 L (9-30) umol/L NT-Pro-B Natriuret Pep (<125) pg/mL Total Protein (6.3-8.2) g/dL Albumin (3.5-5.0) g/dL Globulin (1.7-4.1) g/dL Albumin/Globulin Ratio (1.0-2.8) Urine Dip Bedside Urine Glucose Negative Bedside Urine Bilirubin - Negative Bedside Urine Ketone - Negative Urine Specific [place] 1.020 Bedside Urine Occult Blood - Negative Bedside Urine pH 6.0 Bedside Urine Protein - Negative Bedside Urine Urobilinogen - Negative Bedside Urine Nitrite - Negative Bedside Urine Leukocytes - Negative Esterase Discharge Plan Departure Patient Disposition: Admitted as Observation Clinical Impression: Scrotal edema Hepatitis C Qualifiers: Viral hepatitis chronicity: unspecified Hepatic coma status: without hepatic coma Qualified Code(s): B19.20 - Unspecified viral hepatitis C without hepatic coma Liver cancer Qualifiers: Liver malignancy type: unspecified liver malignancy Qualified Code(s): C22.9 - Malignant neoplasm of liver, not specified as primary or secondary Discharge Date/Time: 05/26/20 22:48 Instructions: DI for Cirrhosis, How To Perform RICE (Rest, Ice, Compress, Elevate), Fluid Restricted Diet, Low-Sodium Diet Referrals: Ricky Lorenzo MD [Primary Care Provider] - 06/03/20 3:00 pm (appt:06/03 @ 3:[address] lorenzo please check in 15 minutes prior to your scheduled appointment ) Admit Date/Time: 05/26/20 21:29 Admit Provider: Marivel Quinn <Alba Mata MD - Last Filed: 06/13/20 18:10> Cosign ED Attending Cosignature Attestation: I was immediately available in the department for consultation throughout this patient's visit. I agree with documentation as above. Alba Mata MD
[2020-05-26 17:45] LABS: Add Manual Diff / Slide Review NO; Basophils Absolute Auto 0 /uL (0-100); Basophils Percent Auto 0.6 % (0-2); Eosinophils Absolute Auto 0 /uL (0-450); Eosinophils Percent Auto 0.7 % (2-4); Hematocrit 25.3 % (41-53); Hemoglobin 8.7 g/dL (13.5-17.5); Lymphocytes Absolute Auto 300 /uL (1100-4500); Lymphocytes Percent Auto 5.8 % (25-40); Mean Corpuscular HGB Conc 34.4 % (30-36); Mean Corpuscular Hemoglobin 31.2 PG (26-34); Mean Corpuscular Volume 90.8 fL (80-100); Monocytes Absolute Auto 800 /uL (0-900); Monocytes Percent Auto 14.3 % (3-14); Neutrophils Absolute Auto 4400 /uL (1500-7000); Neutrophils Percent Auto 78.6 % (50-75); Platelet Count 100 X10^3/uL (150-400); Red Blood Cell Count 2.79 X10^6/uL (4.5-5.9); Red Cell Distribution Width 16.4 % (11.6-14.8); White Blood Cell Count 5.7 X10^3/uL (4.5-11.0)
[2020-05-26 17:55] LABS: INR 1.3 (0.9-1.3)
[2020-05-26 17:57] LABS: PTT Partial Thromboplastin Tim 30 SECONDS (26.4-36.2)
[2020-05-26 18:02] LABS: Alanine Aminotransferase 32 IU/L (<50); Albumin 2.4 g/dL (3.5-5.0); Albumin Globulin Ratio 0.8 (1.0-2.8); Alkaline Phosphatase 111 U/L (38-126); Aspartate Aminotransferase 70 IU/L (17-59); Bilirubin Total 1.4 mg/dL (0.2-1.3); Blood Urea Nitrogen 7 mg/dL (9-20); Calcium 7.6 mg/dL (8.4-10.2); Carbon Dioxide 31 mmol/L (22-32); Chloride 94 mmol/L (98-107); Estimated Glomerular Filt Rate > 60.0 mL/min (>60); Glucose 147 mg/dL (80-110); HEMOLYSIS < 15 (0-50); Potassium 3.7 mmol/L (3.4-5.1); Sodium 127 mmol/L (137-145); Total Protein 5.4 g/dL (6.3-8.2)
[2020-05-26 18:03] LABS: Ammonia (NH3) < 9 umol/L (9-30)
[2020-05-26 18:11] LABS: NT-proBNP (BNP-Adult 18+) 531 pg/mL (<125)
[2020-05-26] MEDS: FUROSEMIDE 100 MG/10 ML VIAL 80 MG IV (18:14)
[2020-05-27] VITALS: BP 123/72; PULSE 65; RESP 18; TEMP 36.5; O2SAT 97
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
[2020-05-27] MEDS: METHADONE 10 MG TABLET PO ×2 (01:27→08:16)
--- NOTE | 2020-05-27 03:02 | PC.ADMIT ---
Patient admitted to room 208 at 2250 per wheelchair from ER. States he came in due to swelling in LE and scrotum. Is alert and oriented. Breath sounds CTA with RA sat of 94%. HRR; telemetry reading was SR. Denies nausea. BT present and denies bowel problems. Abdomen is distended/ascites; states he feels bloated. Denies dysuria, frequency or urgency with urination and states he is continent. Does have scrotal edema; support ordered but not available tonight. 2+ edema in bilateral LE present. States he is having 4/10 chronic back pain and was medicated with Methadone per home routine after order obtained from Kai LEVI. Bilateral calf SCD's applied as per order. Is able to move self in bed and reports he walks at home without assistive device and denies any falls. Fall risk score is moderate; bed alarm is activated and patient instructed to call for assistance if needing to get out of bed. Instructed in use of call light and bed controls. [id number] Admission Note: The patient,Kb Mosqueda,65 y/o, was given written information regarding hospital policies, unit procedures and contact persons. Patient's smoking status: Current every day smoker. Vital Signs - 8 hr 05/26/20 19:32 05/26/20 19:33 05/26/20 19:40 Temperature Pulse Rate 64 64 70 Respiratory Rate 16 Blood Pressure Blood Pressure [Left Arm] 118/64 Pulse Oximetry 98 98 98 05/26/20 19:50 05/26/20 20:00 05/26/20 20:09 Temperature Pulse Rate 64 86 66 Respiratory Rate Blood Pressure 143/74 H Blood Pressure [Left Arm] Pulse Oximetry 99 97 99 05/26/20 20:10 05/26/20 20:20 05/26/20 20:30 Temperature Pulse Rate 65 75 70 Respiratory Rate Blood Pressure 127/92 H Blood Pressure [Left Arm] Pulse Oximetry 99 95 97 05/26/20 20:40 05/26/20 20:50 05/26/20 21:00 Temperature Pulse Rate 64 92 H 64 Respiratory Rate Blood Pressure 113/57 L Blood Pressure [Left Arm] Pulse Oximetry 99 85 L 99 05/26/20 21:10 05/26/20 21:20 05/26/20 21:30 Temperature Pulse Rate 65 64 68 Respiratory Rate Blood Pressure 126/72 Blood Pressure [Left Arm] Pulse Oximetry 98 99 100 05/26/20 22:48 05/26/20 22:50 05/27/20 00:00 Temperature 98.6 F 97.7 F Pulse Rate 66 65 65 Respiratory Rate 16 17 18 Blood Pressure 119/56 L 132/78 123/72 Blood Pressure [Left Arm] Pulse Oximetry 97 99 97
[2020-05-27 03:45] VITALS: BP 123/69; PULSE 64; RESP 15; TEMP 36.8; O2SAT 97
[2020-05-27 06:10] LABS: Add Manual Diff / Slide Review NO; Basophils Absolute Auto 0 /uL (0-100); Basophils Percent Auto 0.4 % (0-2); Eosinophils Absolute Auto 100 /uL (0-450); Eosinophils Percent Auto 4.3 % (2-4); Lymphocytes Absolute Auto 400 /uL (1100-4500); Lymphocytes Percent Auto 12.7 % (25-40); Mean Corpuscular HGB Conc 34.3 % (30-36); Mean Corpuscular Hemoglobin 31.1 PG (26-34); Mean Corpuscular Volume 90.8 fL (80-100); Monocytes Absolute Auto 600 /uL (0-900); Monocytes Percent Auto 18.9 % (3-14); Neutrophils Absolute Auto 2000 /uL (1500-7000); Neutrophils Percent Auto 63.7 % (50-75); Platelet Count 74 X10^3/uL (150-400); Red Blood Cell Count 2.58 X10^6/uL (4.5-5.9); White Blood Cell Count 3.1 X10^3/uL (4.5-11.0)
[2020-05-27 06:14] LABS: Alanine Aminotransferase 29 IU/L (<50); Albumin 2.1 g/dL (3.5-5.0); Albumin Globulin Ratio 0.7 (1.0-2.8); Alkaline Phosphatase 104 U/L (38-126); Aspartate Aminotransferase 61 IU/L (17-59); BUN Creatinine Ratio 10.3 (6-22); Bilirubin Total 1.2 mg/dL (0.2-1.3); Blood Urea Nitrogen 7 mg/dL (9-20); Calcium 7.6 mg/dL (8.4-10.2); Carbon Dioxide 34 mmol/L (22-32); Chloride 97 mmol/L (98-107); Estimated Glomerular Filt Rate > 60.0 mL/min (>60); Globulin 2.9 g/dL (1.7-4.1); Glucose 91 mg/dL (80-110); HEMOLYSIS < 15 (0-50); Potassium 4.2 mmol/L (3.4-5.1); Sodium 130 mmol/L (137-145)
[2020-05-27 06:18] LABS: Hematocrit 23.5 % (41-53)
[2020-05-27 07:20] VITALS: BP 136/69; PULSE 63; RESP 16; TEMP 36.8; O2SAT 96
[2020-05-27] MEDS: SPIRONOLACTONE 25 MG TABLET 100 MG PO (08:16)
[2020-05-27] MEDS: PANTOPRAZOLE 40 MG TABLET PO (08:16)
[2020-05-27] MEDS: FUROSEMIDE 40 MG TABLET PO (08:16)
[2020-05-27] MEDS: SODIUM CHLORIDE 0.9% FLUSH 10 ML IV (08:17)
--- NOTE | 2020-05-27 08:29 | PC.NURSE ---
Addendum entered by Lora Pandey R.N. 05/27/20 10:55: Went over dc meds and instructions with patient, questions answered. Patient aware of his two follow up appt that were made with Dr Hassan and Dr Lorenzo. Patient escorted to his own vehicle, patient had all belongings. Original Note: Patient alert, oriented, reports chronic back pain is a 3/10, scheduled methadone given. SBA to bathroom, gait is steady voided 250cc clear vitor urine. Patient reports scrotal edema is improved, sling applied. 2+ pitting edema to bilat feet and ankles.
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
--- NOTE | 2020-05-27 10:26 | CM.DANOTE ---
DCP: Case received, EMR reviewed and met with patient. Introduced self and role. Was able to meet with patient and obtain information regarding his baseline activity and living situation. DCP assessment completed with information currently available. Patient is a 65 year old male who admitted yesterday evening to the care of the hospitalist team. PCP: Dr. Lorenzo. Payer: confirmed: [employer]. Patient came to the hospital via private vehicle secondary to some edema in his lower extremity. Patient has history of liver cancer, as well as cirrhosis. He is here for removal of fluid, paracentesis. He has been seen over at [facility] and [facility], for his liver disease. Met with patient in his room. He is alert and oriented, pleasant. He is independent at baseline, and resides alone, but has his mother and sister in the area. He drives, as well. P: Plan is for patient to go home today after procedure. Katia Aguilar RN/Public Health Educator
== END 2020-05-27 10:56 | disposition home or self-care (01) ==
LOC: ED 21:28 → AC 21:46
PROVIDERS: Admitting Provider Nurse Practitioner Family; Emergency Provider Nurse Practitioner; PCP Student in an Organized Health Care Education/Training Program; Referring Provider Nurse Practitioner; Visit Provider Nurse Practitioner Family
DX: R60.1 Generalized edema (principal); K74.60 Unspecified cirrhosis of liver; K72.90 Hepatic failure, unspecified without coma; B19.20 Unspecified viral hepatitis C without hepatic coma; Z85.05 Personal history of malignant neoplasm of liver; I10 Essential (primary) hypertension; K21.9 Gastro-esophageal reflux disease without esophagitis; F17.210 Nicotine dependence, cigarettes, uncomplicated
CPT/HCPCS: 36415; 80048; 80053; 81003; 82140; 83735; 83880; 84100; 85025; 85610; 85730; 96374; 99284; G0378; J1940

== ENCOUNTER → 2020-06-03 15:13 | Outpatient (CLI) | payer OTHER, MEDICAID, SELFPAY ==
[2020-05-26 23:58] VITALS: BMI 23.8
[2020-06-03 17:01] LABS: Hematocrit 28.1 % (41-53); Hemoglobin 9.2 g/dL (13.5-17.5); Mean Corpuscular HGB Conc 32.9 % (30-36); Mean Corpuscular Hemoglobin 29.4 PG (26-34); Mean Corpuscular Volume 89.3 fL (80-100); Platelet Count 118 X10^3/uL (150-400); Red Blood Cell Count 3.14 X10^6/uL (4.5-5.9); Red Cell Distribution Width 15.8 % (11.6-14.8); White Blood Cell Count 4.3 X10^3/uL (4.5-11.0)
[2020-06-03 17:07] LABS: BUN Creatinine Ratio 13.2 (6-22); Blood Urea Nitrogen 9 mg/dL (9-20); Calcium 7.9 mg/dL (8.4-10.2); Carbon Dioxide 34 mmol/L (22-32); Chloride 95 mmol/L (98-107); Estimated Glomerular Filt Rate > 60.0 mL/min (>60); Glucose 99 mg/dL (80-110); HEMOLYSIS < 15 (0-50); Potassium 4.5 mmol/L (3.4-5.1); Sodium 130 mmol/L (137-145)
== END ==
PROVIDERS: PCP Student in an Organized Health Care Education/Training Program; Referring Provider Student in an Organized Health Care Education/Training Program; Visit Provider Student in an Organized Health Care Education/Training Program
DX: D64.9 Anemia, unspecified (principal); E87.1 Hypo-osmolality and hyponatremia
CPT/HCPCS: 36415; 80048; 85027

== ENCOUNTER → 2020-06-18 11:02 | Outpatient (CLI) | payer OTHER, MEDICAID, SELFPAY ==
[2020-05-26 23:58] VITALS: BMI 23.8
[2020-06-18 12:06] LABS: Clostridium Difficile Tox PCR Positive for C. diff
== END ==
PROVIDERS: PCP Student in an Organized Health Care Education/Training Program; Referring Provider Student in an Organized Health Care Education/Training Program; Visit Provider Student in an Organized Health Care Education/Training Program
DX: A04.72 Enterocolitis due to Clostridium difficile, not specified as recurrent (principal); R19.7 Diarrhea, unspecified
CPT/HCPCS: 87493

== ENCOUNTER → 2020-07-07 13:06 | Outpatient (CLI) | payer OTHER, MEDICAID, SELFPAY ==
[2020-05-26 23:58] VITALS: BMI 23.8
== END ==
PROVIDERS: PCP Student in an Organized Health Care Education/Training Program; Referring Provider Pain Medicine Pain Medicine; Visit Provider Pain Medicine Pain Medicine
DX: Z79.891 Long term (current) use of opiate analgesic (principal)
CPT/HCPCS: 93005

== ENCOUNTER 2020-10-04 04:58 | Emergency (ER) | payer OTHER, MEDICAID, SELFPAY ==
[2020-05-26 23:58] VITALS: BMI 23.8
[2020-10-04] VITALS (8 sets, daily range): BP systolic 144–150; BP diastolic 70–72; PULSE 71–88; RESP 15–20; TEMP 36.6; O2SAT 98–99
--- NOTE | 2020-10-04 05:04 | DI.CT.S_ITS ---
PROCEDURE: CT HEAD/BRAIN WO CON INDICATIONS: multiple falls with confusion TECHNIQUE: Noncontrast 4.5 mm thick angled axial sections acquired from the foramen magnum to the vertex, with coronal and sagittal reformats. For radiation dose reduction, the following was used: automated exposure control, adjustment of mA and/or kV according to patient size. COMPARISON: None. FINDINGS: Image quality: Excellent. CSF spaces: Basal cisterns are patent. The ventricles are symmetric in size and shape. Brain: There is a small, heterogeneous subdural hemorrhage along the left anterior to lateral frontal and upper temporal lobe with maximum thickness of approximately 4 mm. No mass effect or midline shift of structures. No acute parenchymal bleeds or masses. There is cerebral volume loss for age, with resultant ventricular and sulcal prominence. There are periventricular and deep white matter chronic small vessel ischemic changes. There is intracranial internal carotid artery atherosclerosis. Skull and face: Calvarium and visualized facial bones appear intact, without suspicious lesions. Postoperative changes in fixation hardware of the right zygomatic arch. Sinuses: Visualized sinuses and mastoids are clear. IMPRESSION: 1. Acute subdural hemorrhage along the left anterior to the left cerebral convexity without evidence for mass effect or midline shift of structures. 2. No acute calvarial fractures or facial fractures. 3. Sequela of chronic small vessel ischemic disease. Findings were discussed with Dr. Denton by the overnight radiologist at 0609 hrs PST No significant discrepancy with the flame planer radiology preliminary report. Dictated by: Jamar Vazquez M.D. on 10/04/2020 at 7:16 Approved by: Jamar Vazquez M.D. on 10/04/2020 at 7:20
--- NOTE | 2020-10-04 05:04 | DI.RAD.S_ITS ---
PROCEDURE: XR CHEST 1V INDICATIONS: fall with right sided rib pain TECHNIQUE: One view of the chest was acquired. COMPARISON: [facility], CR, XR CHEST 2V, 05/20/2020, 14:26. FINDINGS: Surgical changes and devices: None. Lungs and pleura: Patchy consolidation of the right peripheral upper lung zone measuring approximately 4.2 x 5.3 cm in size. Streaky bibasilar opacities are also noted. Mild interstitial prominence. No pleural effusions or pneumothorax. Mediastinum: Mediastinal contours appear normal. Heart size is normal. Bones and chest wall: No suspicious bony lesions. Overlying soft tissues appear unremarkable. IMPRESSION: Right upper lung zone consolidation which may represent pulmonary contusion, focal airspace disease/pneumonia, or neoplasm. No underlying rib fractures visualized. Short-term follow-up imaging recommended to document stability versus resolution No significant discrepancy with the mobile ui developer radiology preliminary report. Dictated by: Jamar Vazquez M.D. on 10/04/2020 at 7:21 Approved by: Jamar Vazquez M.D. on 10/04/2020 at 7:23
--- NOTE | 2020-10-04 05:06 | ED_ITS ---
HPI - Altered Mental Status General Chief Complaint: Back Pain/Injury Stated Complaint: Rib pain Time Seen by Provider: 10/04/20 05:00 Source: patient and EMS Mode of arrival: EMS Limitations: no limitations History of Present Illness HPI narrative: 65M daily smoker with extensive medical history including Hepatis C, cirrhosis, esophagel varices presents by would be EMS for evaluation of multiple complaints. The patient has a very hard time remembering the details and is largely a terrible historian but suggested over at least the past few days he has become increasingly weak and has had multiple falls. He denies any obvious head injury but states he may have lost consciousness during 1 of the falls. He denies any neck or back pain nor extremity pain but does have some right-sided rib pain, likely as a consequence of 1 of the falls. He denies any vomiting or diarrhea but has had significant nausea. He states he has been taking his medications and really does not know why. He has had some blood in his urine but states it isn't all that much. MD complaint: altered mental status and confusion Onset (ago): day(s) Severity: moderate Consistency of symptoms: unknown Context: history of similar presentation Related Data Home Medications Medication Instructions Recorded Confirmed methadone 10 mg PO TID 07/09/19 06/03/20 pantoprazole 40 mg tablet,delayed 40 mg PO BID 05/16/20 06/03/20 release furosemide [Lasix] 40 mg PO DAILY 05/27/20 06/03/20 Previous Rx's Medication Instructions Recorded spironolactone 100 mg tablet 100 mg PO DAILY #90 tab 08/13/20 Allergies Allergy/AdvReac Type Severity Reaction Status Date / Time acetaminophen [From Tylenol] AdvReac Unknown Verified 06/03/20 14:56 Review of Systems Constitutional Constitutional: Denies chills, Denies fatigue, Denies fever(s), Denies frequent falls, Denies lethargy and Reports weakness Eyes Eyes: Denies change in vision, Denies eye discharge, Denies irritation and Denies loss of vision ENT Ears, Nose, Mouth, and Throat: Denies change in voice, Denies dizziness, Denies neck pain, Denies sore throat and Denies throat swelling Cardiovascular Cardiovascular: Denies chest pain, Denies irregular heart rhythm, Denies lightheadedness, Denies palpitations, Denies dyspnea, Denies dyspnea on exertion and Denies orthopnea Respiratory Respiratory: Denies cough, Denies dyspnea, Denies dyspnea on exertion and Denies wheezing Gastrointestinal Gastrointestinal: Reports abdominal pain, Denies change in bowel habits, Denies diarrhea, Reports nausea and Denies vomiting Musculoskeletal Musculoskeletal: Denies neck pain and Denies numbness Integumentary/Breasts Skin/Breast: Denies pruritus, Denies erythema, Denies rash and Denies wounds Neurologic Neurologic: Denies behavioral changes, Denies confusion, Denies dizziness, Den ies frequent falls, Denies loss of vision, Denies numbness and Reports weakness Psychiatric Psychiatric: Denies anxiety, Denies behavioral changes, Denies confusion, Denies depression, Denies homicidal ideation and Denies suicidal ideation Endocrine Endocrine: Denies fatigue, Denies flushing and Denies palpitations Hematologic/Lymphatic Hematologic/Lymphatic: Denies easy bruising Allergic/Immunologic Allergic/Immunologic: Denies urticaria, Denies throat swelling and Denies wheezing Patient History Medical History Bipolar disorder (Chronic Unknown) Chronic pain syndrome (Chronic Unknown) Cirrhosis (Chronic Unknown) DDD (degenerative disc disease), lumbosacral (Chronic Unknown) GERD (gastroesophageal reflux disease) (Chronic Unknown) Hepatitis C (Chronic Unknown) Hepatocellular carcinoma (Chronic Unknown) Hx of head injury (Resolved 1984) Hypertension (Chronic Unknown) Uncomplicated opioid dependence (Chronic) Surgical History History of surgery of liver (Resolved ~2011) Hx of skin graft (Resolved 1995) Family History Mother Age: 87 Breast cancer genetic susceptibility Social History household members: other Smoking Status: Current every day smoker alcohol intake: former Smoking Status: Current every day smoker alcohol intake frequency: 0-2 drinks per day Substance Use Type: does not use Exam Narrative Exam Narrative: GENERAL: [65] year old patient appears older than stated age. Obviously, our chronically ill with temporal wasting, jaundice and scleral icterus. GCS 15 HEAD: Atraumatic. Normocephalic. EYES: Pupils equal round and reactive. Extraocular motions intact. No hyphema No injection or drainage. ENT: No nasal septal hematoma, no hemotympanum Nose without bleeding, purulent drainage. Throat without erythema, tonsillar hypertrophy or exudate. Airway patent. NECK: Trachea midline. Non tender CARDIOVASCULAR: Regular rate and rhythm without murmurs, gallops, or rubs. RESPIRATORY: Faint crackles in bilateral bases with decreased breath sounds elsewhere. GASTROINTESTINAL: distended with tense ascites EXTREMITIES: No edema or joint tenderness. BACK: Nontender without deformity or crepitance. No flank tenderness. NEURO: AOx3. SKIN: No rash or erythema of visible areas Initial Vital Signs Initial Vital Signs: Vital Signs Temperature 98 F 10/04/20 05:07 Pulse Rate 72 10/04/20 05:07 Respiratory Rate 18 10/04/20 05:07 Blood Pressure 150/72 H 10/04/20 05:07 Pulse Oximetry 99 10/04/20 05:07 Course Orders Ordered: ED Orders 10/04/20 05:04 CT head/brain wo con Stat XR chest 1V Stat 10/04/20 05:25 Ammonia (NH3) Stat Complete Blood Count AUTO DIFF Stat Comprehensive Metabolic Panel Stat Lactate (Lactic Acid) Stat Lipase Stat Magnesium Stat NT-proBNP (BNP-Adult 18+) Stat Partial Thromboplastin Time Stat Procalcitonin Stat Prothrombin Time INR Stat Troponin & CK Cardiac Panel Stat 10/04/20 06:30 COVID19 -ED/INPAT/OR/L&D Stat Discontinued Medications Prothrombin Complex Concent ( Human) 2,500 unit/Miscellaneous 100 mls @ 727.2 mls/hr IV NOW ONE; Protocol Stop: 10/04/20 06:21 Last Admin: 10/04/20 06:28 Dose: Not Given Documented by: DC Phytonadione (Mephyton) 5 mg PO NOW ONE Stop: 10/04/20 06:12 Last Admin: 10/04/20 06:27 Dose: 5 mg Documented by: DC Consultations Consultation #1: Call to emergency department at [facility] upon receipt of head CT which notes the subdural hemorrhage. Dr. eLe is happy to accept the patient, understands that C spine imaging was not performed, but patient is in C collar. We discussed use of Vit K and/or 4 factor PCC and recommendation from [facility] [place] is to hold on Kcentra for now. Images have been pushed. [facility] called for transport due to length of transport, potential for rapid decline. Patient is aware of (and in agreement with) the plan Vital Signs Vital signs: Vital Signs - 8 hr 10/04/20 05:07 10/04/20 05:09 10/04/20 05:30 Temperature 98 F Pulse Rate 72 71 76 Respiratory Rate 18 Blood Pressure 150/72 H Pulse Oximetry 99 99 98 10/04/20 06:00 10/04/20 06:35 Temperature Pulse Rate 72 74 Respiratory Rate 20 Blood Pressure 144/70 H Pulse Oximetry 98 98 MDM - Altered Mental Status Lab Data Result diagrams: 10/04/20 05:25 10/04/20 05:25 Labs: Lab Results 10/04/20 10/04/20 10/04/20 Range/Units 05:25 05:25 05:25 WBC 7.7 (4.5-11.0) X10^3/uL RBC 2.59 L (4.5-5.9) X10^6/uL Hgb 8.6 L (13.5-17.5) g/dL Hct 24.6 L (41-53) % MCV 94.7 (80-100) fL MCH 33.1 (26-34) PG MCHC 35.0 (30-36) % RDW 16.1 H (11.6-14.8) % Plt Count 137 L (150-400) X10^3/uL Neut % (Auto) Not Reportable Lymph % (Auto) Not Reportable [place] % (Auto) Not Reportable Eos % (Auto) Not Reportable Baso % (Auto) Not Reportable Lymph # (Auto) Not Reportable [place] # (Auto) Not Reportable Baso # (Auto) Not Reportable Total Counted 100 Seg Neutrophils % 88.0 H (38-70) % Band Neutrophils % 2.0 L (3-7) % Lymphocytes % (Manual) 3.0 L (25-45) % Monocytes % (Manual) 6.0 (2-11) % Eosinophils % (Manual) 1.0 L (2-4) % Neutrophils # (Manual) 6930 H (7985-5753) /uL RBC Morphology See below Anisocytosis 2+ H Schistocytes 1+ H PT 22.8 H (10.1-12.7) SECONDS INR 2.0 H (0.9-1.3) APTT 36 D (26.4-36.2) SECONDS Sodium 134 L (137-145) mmol/L Potassium 4.0 (3.4-5.1) mmol/L Chloride 102 (98-107) mmol/L Carbon Dioxide 31 (22-32) mmol/L BUN 28 H (9-20) mg/dL Creatinine 0.83 (0.66-1.25) mg/dL Estimated GFR > 60.0 (>60) mL/min BUN/Creatinine Ratio 33.7 H (6-22) Glucose 107 (80-110) mg/dL Lactate (0.7-2.1) mmol/L Calcium 8.0 L (8.4-10.2) mg/dL Magnesium 2.1 (1.6-2.3) mg/dL Total Bilirubin 10.8 H (0.2-1.3) mg/dL AST 347 H (17-59) IU/L ALT 182 H (<50) IU/L Alkaline Phosphatase 335 H (38-126) U/L Ammonia (9-30) umol/L Total Creatine Kinase 139 (55-170) U/L CK-MB (CK-2) 2.11 (<2.37) ng/mL CK-MB (CK-2) Rel Index 1.5 (1.5-5.0) % Troponin I 0.013 (0.01-0.034) ng/mL NT-Pro-B Natriuret Pep 2190 H (<125) pg/mL Total Protein 6.7 (6.3-8.2) g/dL Albumin 2.5 L (3.5-5.0) g/dL Globulin 4.2 H (1.7-4.1) g/dL Albumin/Globulin Ratio 0.6 L (1.0-2.8) Lipase 47 (23-300) U/L Procalcitonin (<0.5) ng/mL COVID-19 PCR (Negative) 10/04/20 10/04/20 10/04/20 Range/Units 05:25 05:25 05:25 WBC (4.5-11.0) X10^3/uL RBC (4.5-5.9) X10^6/uL Hgb (13.5-17.5) g/dL Hct (41-53) % MCV (80-100) fL MCH (26-34) PG MCHC (30-36) % RDW (11.6-14.8) % Plt Count (150-400) X10^3/uL Neut % (Auto) Lymph % (Auto) [place] % (Auto) Eos % (Auto) Baso % (Auto) Lymph # (Auto) [place] # (Auto) Baso # (Auto) Total Counted Seg Neutrophils % (38-70) % Band Neutrophils % (3-7) % Lymphocytes % (Manual) (25-45) % Monocytes % (Manual) (2-11) % Eosinophils % (Manual) (2-4) % Neutrophils # (Manual) (6988-2315) /uL RBC Morphology Anisocytosis Schistocytes PT (10.1-12.7) SECONDS INR (0.9-1.3) APTT (26.4-36.2) SECONDS Sodium (137-145) mmol/L Potassium (3.4-5.1) mmol/L Chloride (98-107) mmol/L Carbon Dioxide (22-32) mmol/L BUN (9-20) mg/dL Creatinine (0.66-1.25) mg/dL Estimated GFR (>60) mL/min BUN/Creatinine Ratio (6-22) Glucose (80-110) mg/dL Lactate 2.0 (0.7-2.1) mmol/L Calcium (8.4-10.2) mg/dL Magnesium (1.6-2.3) mg/dL Total Bilirubin (0.2-1.3) mg/dL AST (17-59) IU/L ALT (<50) IU/L Alkaline Phosphatase (38-126) U/L Ammonia 10 (9-30) umol/L Total Creatine Kinase (55-170) U/L CK-MB (CK-2) (<2.37) ng/mL CK-MB (CK-2) Rel Index (1.5-5.0) % Troponin I (0.01-0.034) ng/mL NT-Pro-B Natriuret Pep (<125) pg/mL Total Protein (6.3-8.2) g/dL Albumin (3.5-5.0) g/dL Globulin (1.7-4.1) g/dL Albumin/Globulin Ratio (1.0-2.8) Lipase (23-300) U/L Procalcitonin 1.50 H (<0.5) ng/mL COVID-19 PCR (Negative) 10/04/20 Range/Units 06:30 WBC (4.5-11.0) X10^3/uL RBC (4.5-5.9) X10^6/uL Hgb (13.5-17.5) g/dL Hct (41-53) % MCV (80-100) fL MCH (26-34) PG MCHC (30-36) % RDW (11.6-14.8) % Plt Count (150-400) X10^3/uL Neut % (Auto) Lymph % (Auto) [place] % (Auto) Eos % (Auto) Baso % (Auto) Lymph # (Auto) [place] # (Auto) Baso # (Auto) Total Counted Seg Neutrophils % (38-70) % Band Neutrophils % (3-7) % Lymphocytes % (Manual) (25-45) % Monocytes % (Manual) (2-11) % Eosinophils % (Manual) (2-4) % Neutrophils # (Manual) (5400-0118) /uL RBC Morphology Anisocytosis Schistocytes PT (10.1-12.7) SECONDS INR (0.9-1.3) APTT (26.4-36.2) SECONDS Sodium (137-145) mmol/L Potassium (3.4-5.1) mmol/L Chloride (98-107) mmol/L Carbon Dioxide (22-32) mmol/L BUN (9-20) mg/dL Creatinine (0.66-1.25) mg/dL Estimated GFR (>60) mL/min BUN/Creatinine Ratio (6-22) Glucose (80-110) mg/dL Lactate (0.7-2.1) mmol/L Calcium (8.4-10.2) mg/dL Magnesium (1.6-2.3) mg/dL Total Bilirubin (0.2-1.3) mg/dL AST (17-59) IU/L ALT (<50) IU/L Alkaline Phosphatase (38-126) U/L Ammonia (9-30) umol/L Total Creatine Kinase (55-170) U/L CK-MB (CK-2) (<2.37) ng/mL CK-MB (CK-2) Rel Index (1.5-5.0) % Troponin I (0.01-0.034) ng/mL NT-Pro-B Natriuret Pep (<125) pg/mL Total Protein (6.3-8.2) g/dL Albumin (3.5-5.0) g/dL Globulin (1.7-4.1) g/dL Albumin/Globulin Ratio (1.0-2.8) Lipase (23-300) U/L Procalcitonin (<0.5) ng/mL COVID-19 PCR Negative (Negative) Imaging Data CT scan - head: Radiologist's Impression: Acute SDH along left anterior to lateral cerebral convexity without mass effect or midline shift Discharge Plan Departure Patient Disposition: [facility] Clinical Impression: Traumatic intracranial subdural hematoma Qualifiers: Encounter type: initial encounter Loss of consciousness presence/duration: with LOC of 30 min or less Qualified Code(s): S06.5X1A - Traumatic subdural hemorrhage with loss of consciousness of 30 minutes or less, initial encounter Prescriptions: No Action spironolactone 100 mg tablet 100 mg PO DAILY Qty: 90 RF: 1 pantoprazole 40 mg tablet,delayed release (DR/EC) 40 mg PO BID RF: 0 furosemide [Lasix] 40 mg Tablet 40 mg PO DAILY RF: 0 methadone 10 mg tablet 10 mg PO TID RF: 0 Referrals: Ricky Lorenzo MD [Primary Care Provider] -
[2020-10-04 05:42] LABS: Hematocrit 24.6 % (41-53); Hemoglobin 8.6 g/dL (13.5-17.5); Mean Corpuscular Hemoglobin 33.1 PG (26-34); Mean Corpuscular Volume 94.7 fL (80-100); Prothrombin Time 22.8 SECONDS (10.1-12.7); Red Blood Cell Count 2.59 X10^6/uL (4.5-5.9); Red Cell Distribution Width 16.1 % (11.6-14.8); White Blood Cell Count 7.7 X10^3/uL (4.5-11.0)
[2020-10-04 05:45] LABS: Ammonia (NH3) 10 umol/L (9-30); PTT Partial Thromboplastin Tim 36 SECONDS (26.4-36.2)
[2020-10-04 05:49] LABS: Alanine Aminotransferase 182 IU/L (<50); Albumin 2.5 g/dL (3.5-5.0); Albumin Globulin Ratio 0.6 (1.0-2.8); Alkaline Phosphatase 335 U/L (38-126); Aspartate Aminotransferase 347 IU/L (17-59); BUN Creatinine Ratio 33.7 (6-22); Bilirubin Total 10.8 mg/dL (0.2-1.3); Blood Urea Nitrogen 28 mg/dL (9-20); Carbon Dioxide 31 mmol/L (22-32); Chloride 102 mmol/L (98-107); Creatine Kinase 139 U/L (55-170); Estimated Glomerular Filt Rate > 60.0 mL/min (>60); Globulin 4.2 g/dL (1.7-4.1); Glucose 107 mg/dL (80-110); HEMOLYSIS < 15 (0-50); Lipase 47 U/L (23-300); Magnesium 2.1 mg/dL (1.6-2.3); Sodium 134 mmol/L (137-145); Total Protein 6.7 g/dL (6.3-8.2)
[2020-10-04 05:52] LABS: Add Manual Diff / Slide Review YES
[2020-10-04 06:01] LABS: NT-proBNP (BNP-Adult 18+) 2190 pg/mL (<125); Troponin I 0.013 ng/mL (0.01-0.034)
[2020-10-04 06:03] LABS: CKMB % Relative Index 1.5 % (1.5-5.0); Creatine Kinase MB 2.11 ng/mL (<2.37)
[2020-10-04] MEDS: PHYTONADIONE (VIT K1) 5 MG TABLET PO (06:27)
[2020-10-04 06:53] LABS: Platelet Count 137 X10^3/uL (150-400)
[2020-10-04 06:54] LABS: Anisocytosis 2+; Neutrophils Absolute Manual 6930 /uL (3000-5900); Total Cells Counted 100
[2020-10-04 06:54] LABS: COVID19 -Nasal RAPID Negative (Negative)
[2020-10-04 06:55] LABS: Schistocytes 1+
[2020-10-04 07:34] LABS: Reflexed Lactate in 2 Hours Y
== END 2020-10-04 07:55 | disposition short-term general hospital (02) ==
PROVIDERS: Emergency Provider Emergency Medicine; PCP Student in an Organized Health Care Education/Training Program
DX: S06.5X1A Traumatic subdural hemorrhage with loss of consciousness of 30 minutes or less, initial encounter (principal); R41.82 Altered mental status, unspecified; R10.9 Unspecified abdominal pain; R11.0 Nausea; R17 Unspecified jaundice; R07.81 Pleurodynia; R29.6 Repeated falls; W19.XXXA Unspecified fall, initial encounter
CPT/HCPCS: 36415; 70450; 71045; 80053; 82140; 82550; 82553; 83605; 83690; 83735; 83880; 84145; 84484; 85025; 85610; 85730; 87635; 99284